=== PATIENT | female | born 1950 | race Caucasian/White ===

== ENCOUNTER → 2017-03-08 | Outpatient (CLI) | payer BC | END | disposition home or self-care (01) | LOC: C.PAPS 15:43 | PROVIDERS: ATTEND Physician Assistant | DX: Z01.411 Encounter for gynecological examination (general) (routine) with abnormal findings (principal) ==

== ENCOUNTER → 2017-03-09 | Outpatient (CLI) | payer BC ==
--- NOTE | 2017-03-09 16:00 | MAMMOGRAPHY REPORT ---
BILATERAL DIGITAL SCREENING MAMMOGRAM TOMOSYNTHESIS WITH CAD: 03/09/2017 CLINICAL HISTORY: Routine screening. Patient has no complaints. TECHNIQUE: Breast tomosynthesis in addition to standard 2D mammography was performed. Current study was also evaluated with a Computer Aided Detection (CAD) system. COMPARISON: Comparison is made to exams dated: 01/13/2016 mammogram, 01/18/2012 ultrasound, 01/18/20 12 mammogram, 01/13/2012 mammogram, 02/06/2010 mammogram - [facility], and 9. BREAST COMPOSITION: The tissue of both breasts is heterogeneously dense, which may obscure small mas ses. FINDINGS: No suspicious masses, calcifications, or areas of architectural distortion are noted in ei ther breast. There has been no significant interval change compared to prior exams. IMPRESSION: ACR BI-RADS CATEGORY 1: NEGATIVE There is no mammographic evidence of malignancy. A 1 year screening mammogram is recommended. The pa tient will receive written notification of the results. Approximately 10% of breast cancers are not detected with mammography. A negative mammographic report should not delay biopsy if a clinically suggestive mass is present. Angi Chew M.D. /:03/09/2017 14:59:01 [employer]visor [employer]: Irma Andrews [facility] letter sent: Normal 1/2 BI-RADS Code: ACR BI-RADS Category 1: Negative
== END | disposition home or self-care (01) ==
LOC: C.MAMM 14:06
PROVIDERS: ATTEND Obstetrics & Gynecology
DX: Z12.31 Encounter for screening mammogram for malignant neoplasm of breast (principal)

== ENCOUNTER 2020-10-18 04:38 | Inpatient (IN) ==
[2020-10-18] MEDS ORDERED: SODIUM CHLORIDE 0.9% 1000ML 1,000 ML IV STA (04:51)
[2020-10-18 05:12] LABS: Hemoglobin 14.6 g/dL (12.0-16.0); Mean Corpuscular Hemoglobin 30.4 pg (25-34); Mean Corpuscular Hgb Conc 33.2 g/dL (32-36); Mean Corpuscular Volume 91.7 fL (80-100); Mean Platelet Volume 9.7 fL (7.4-10.4); Platelet Count 342 K/uL (130-400); RDW Coefficient of Variation 13.8 % (11.5-14.5); RDW Standard Deviation 46.9 fL (36.4-46.3); White Blood Count 22.74 K/uL (4.8-10.8)
[2020-10-18 05:16] LABS: Appearance Urine Clear (Clear); Bacteria Urine Automated Negative (Negative); Bilirubin Urine Negative (Negative); Blood Urine Negative (Negative); Color Urine Dark Yellow; Epithelial Cell Urine Auto >30 /lpf (0-5); Glucose Urine UA Negative (Negative); Ketones Urine Trace (Negative); Leukocyte Esterase Urine Trace (Negative); Nitrite Urine Negative (Negative); Specific Gravity Urine 1.023 (1.000-1.030); Urobilinogen Urine Negative (Negative); pH Urine >= 9.0 (4.5-7.5)
[2020-10-18 05:19] LABS: Protein Urine 1+ (Negative)
[2020-10-18 05:31] LABS: Calcium 9.2 mg/dl (8.5-10.1); Creatinine Clr Calc Pharmacy 62.4 ml/min; Est GFR (African American) 76.1 ml/min; Est GFR (Non-African American) 65.7 ml/min; Potassium 3.8 mmol/L (3.5-5.1)
[2020-10-18 05:35] LABS: Albumin Globulin Ratio 1.1 (0.9-2); Globulin 3.7 gm/dl (2.5-4.0); Total Protein 7.7 gm/dl (6.4-8.2)
[2020-10-18 05:40] LABS: Basophils # (auto) 0.02 K/uL (0-0.2); Basophils % (auto) 0.1 %; Eosinophils # (auto) 0.02 K/uL (0-0.5); Eosinophils % (auto) 0.1 %; Immature Granulocytes # (auto) 0.09 K/uL (0.00-0.02); Immature Granulocytes % (auto) 0.4 %; Lymphocytes # (auto) 0.94 K/uL (1.2-3.4); Lymphocytes % (auto) 4.1 %; Monocytes # (auto) 1.21 K/uL (0.11-0.59); Monocytes % (auto) 5.3 %; Neutrophils # (auto) 20.46 K/uL (1.4-6.5)
[2020-10-18] MEDS ORDERED: OPTIRAY 320 100ml IV ONE (05:51)
[2020-10-18] MEDS ORDERED: PIPERACILLIN/TAZOBACTAM 4.5 GM/120 ML BAG IV ONE (06:01)
[2020-10-18] MEDS ORDERED: PIPERACILL/TAZOBAC CONSULT ACTIVE PRN (06:01)
--- NOTE | 2020-10-18 06:33 | XRay Report ---
XR chest 1V portable CLINICAL HISTORY: Abdominal pain. COMPARISON STUDY: Chest radiograph August 2020. FINDINGS: Lung volumes are normal. Lungs are clear. There is no pneumothorax or pleural effusion. Mil d cardiomegaly is noted. Mediastinal contours are normal. There is no evidence for pulmonary edema. IMPRESSION: No acute cardiopulmonary findings. No change in appearance of the chest. ACT 112: Negative or not required by law. Electronically signed by: George Hull M.D. 10/18/2020 6:31 AM
--- NOTE | 2020-10-18 07:02 | Surgery Consultation ---
Date of Consultation October 18, 2020 Assessment & Plan (1) Diverticulitis of intestine with abscess: Patient will be admitted to the hospital in the hospital service proceeding as follows: Recommend maintaining the patient on n.p.o. status except for ice chips for bowel rest Provide IV fluid for hydration Continue antibiotics in the form of Zosyn Follow serial labs Provide analgesics Provide antiemetics I discussed with the patient that the goal will be to treat this episode of diverticulitis in a conservative fashion as any emergent surgery would likely necessitate a colostomy. Once the patient shows clinical improvement with intravenous antibiotics this could be transition to oral antibiotics. Patient will likely require colonoscopy in the future once she is adequately recovered from this acute episode We will continue to follow along while the patient is hospitalized Dr. Ramsey-patient admitted with acute diverticulitis with a small pericolonic abscess. Patient now on IV antibiotics Continue bowel rest with ice only for 48 hours-normally I feel the patient should have 4 to 5 days of IV antibiotics She actually wants to go home tomorrow and I told her she should not-we will follow closely History of Present Illness Reason for Consultation: Diverticulitis with abscess History of Present Illness This is a 70-year-old female with a relatively unremarkable past medical history. The patient says she was in her usual state of health until last night she developed some left lower quadrant abdominal pain that did not radiate. She denies any fevers, shakes, chills. She did not have any nausea or vomiting. She notes that she has been having normal bowel movements without any bright red blood per rectum or hematochezia. She does report having had colonoscopies in the past and to the best of her knowledge has not had any significant pathology on these exams. She notes that her abdominal pain persisted and got progressively worse so she presented to the emergency department. She notes that she has never had had any abdominal surgeries. In the emergency department the patient did have labs and imaging which I dependently reviewed. CBC revealed white blood cell count was 22.7. Hemoglobin, hematocrit, platelet count were within normal range. Chemistry profile showed her sodium, potassium, BUN, creatinine were all within normal range. There is no elevation of her lipase. Urinalysis was not indicative of infection.Patient had a chest x-ray that did not show any evidence of pneumonia or CHF.Patient also had a CT scan of the abdomen and pelvis that showed findings consistent with sigmoid diverticulitis. There is also concern the patient had a 2.2 x 1.8 x 1.1 cm diverticular abscess. There is no evidence of pneumoper itoneum or high-grade bowel obstruction. Since admission to the emergency department the patient has been given antibiotics in the form of Zosyn. At the time of my interview her pain had improved and she was in no distress. Allergies Allergy/AdvReac Type Severity Reaction Status Date / Time prednisone AdvReac Intermediate NERVOUS Verified 08/22/20 16:25 AND SHAKEY FEELING-NOT SURE IF GOT HIVES Home Medications Medication Instructions Recorded Confirmed Type clobetasol 0.05 % topical ointment 1 applic TOPICAL QID #1 gm 12/12/18 08/22/20 History ascorbic acid (vitamin C) 250 mg 250 mg PO DAILY 06/24/19 08/22/20 History tablet (Vitamin C) calcium carbonate 600 mg (1,500 1 tab PO DAILY 06/24/19 08/22/20 History mg)-vitamin D3 200 unit tablet (Calcium 600 + D(3)) multivitamin 1 tab PO DAILY 06/24/19 08/22/20 History omega 3 350 mg-dha 235 mg-epa 90 1 cap PO DAILY 06/24/19 08/22/20 History mg-fish oil 597 mg capsule,delay rel ([place]-3) valacyclovir 500 mg tablet 500 mg PO BID #6 tab 08/22/20 08/22/20 Rx acetaminophen 300 mg-codeine 30 mg 1 tab PO Q6H PRN #14 tab 09/18/20 Rx tablet docusate sodium 100 mg capsule 100 mg PO BID #60 cap 09/18/20 Rx (Colace) lidocaine 4 % topical patch 1 patch TOPICAL DAILY #15 ea 09/18/20 Rx sennosides 8.6 mg tablet (Senokot) 8.6 mg PO HS #30 tab 09/18/20 Rx Patient History Medical History (Updated 10/18/20 @ 07:08 by Yumiko Gabriel MD) Abnormal finding on mammography Surgical History No pertinent past surgical history Family History Mother Uterine cancer Social History Smoking Status: Never smoker Feels Safe at Home: Yes Review of Systems Constitutional: no fever and no chills Eyes: no diplopia Ear, Nose, Mouth, Throat: no ear pain Respiratory: no cough and no dyspnea Cardiovascular: no chest pain Gastrointestinal: + abdominal pain; no nausea, no vomiting and no blood in stools Genitourinary: no dysuria Musculoskeletal: no back pain Integumentary: no rash Neurologic: no localized weakness Physical Exam Constitutional: WD/WN, vitals as above Eyes: no conjunctival abnormality ENMT: Ears: no hearing impairment Neck: trachea midline Respiratory: normal respiratory effort, lungs clear to auscultation Cardiovascular: RRR, no murmur, no edema Gastrointestinal (Abdomen): Abdomen is soft and nondistended with positive bowel sounds. There is no rebound tenderness or guarding. Patient did have pain with palpation greatest in the left lower quadrant. Musculoskeletal: No calf tenderness. Pedal pulses are palpable. Skin: no rashes, warm and dry Neurologic: moves all extremities Results & Data ([facility]) Vital Signs (Past 12 Hours) Vital Signs Temp Pulse Pulse Resp BP BP Pulse Ox 10/18/20 05:30 94 H 124/69 94 10/18/20 05:03 95 10/18/20 04:40 36.9 C 116 H 16 112/71 96 PG Care Time/CCT Total # of Minutes Spent Total Time Spent with Patient: Total time spent is greater than 50% in coordination of care (as documented) at patient's floor/unit and/or counseling patient: Coding Level of Care Code 60110 Inpt Consult Level 5 Diagnoses Diverticulitis of intestine with abscess K57.80
--- NOTE | 2020-10-18 07:12 | History & Physical Report ---
Date of Service October 18, 2020 Assessment & Plan (1) Diverticulitis of intestine with abscess: Plan: Zosyn NPO LR @ 125 ml/hr Plan: Lovenox for VTE prophylaxis History of Present Illness Chief Complaint: Abdominal pain Primary Care Provider: Ashli Cedeño Sushma Martinez is a 70 year old female who presents to the ER with abdominal pain. Relatively sudden onset left lower quadrant and now central abdominal pain, occurred since last night, aching, no radiation, much improved since bowel rest and pain medications given. Associated fatigue going on for longer which she put down to recent rib fractures. She has never had diverticultitis before had previously normal colonoscopies but unsure when the last one was. She notes she was supposed to have a colonoscopy last summer but this was delayed due to the pandemic. In the ER WBC elevated at 22.74, CT A/P consistent with sigmoid diverticulitis with associated 2.2x1.8x1.1cm abscess. She was started on Zosyn for antibiotic coverage. Allergies Allergy/AdvReac Type Severity Reaction Status Date / Time prednisone AdvReac Intermediate NERVOUS Verified 08/22/20 16:25 AND SHAKEY FEELING-NOT SURE IF GOT HIVES Home Medications Medication Instructions Recorded Confirmed Type clobetasol 0.05 % topical ointment 1 applic TOPICAL QID #1 gm 12/12/18 10/18/20 History ascorbic acid (vitamin C) 250 mg 250 mg PO DAILY 06/24/19 10/18/20 History tablet (Vitamin C) calcium carbonate 600 mg (1,500 1 tab PO DAILY 06/24/19 10/18/20 History mg)-vitamin D3 200 unit tablet (Calcium 600 + D(3)) multivitamin 1 tab PO DAILY 06/24/19 10/18/20 History omega 3 350 mg-dha 235 mg-epa 90 1 cap PO DAILY 06/24/19 10/18/20 History mg-fish oil 597 mg capsule,delay rel ([place]-3) valacyclovir 500 mg tablet 500 mg PO BID #6 tab 08/22/20 08/22/20 Rx docusate sodium 100 mg capsule 100 mg PO BID #60 cap 09/18/20 10/18/20 Rx (Colace) lidocaine 4 % topical patch 1 patch TOPICAL DAILY #15 ea 09/18/20 10/18/20 Rx sennosides 8.6 mg tablet (Senokot) 8.6 mg PO HS #30 tab 09/18/20 Rx Past Med/Surg History Medical History (Updated 10/18/20 @ 07:08 by Yumiko Gabriel MD) Abnormal finding on mammography Surgical History No pertinent past surgical history Family History Mother Uterine cancer Social History Smoking Status: Never smoker Hx Alcohol Use: Yes Alcohol type: wine Hx Substance Use: No Preferred Language: Telugu [employer] Required: No Beliefs That Will Affect Care: None Current Living Situation: Spouse Feels Safe at Home: Yes Assistive Devices: None Review of Systems Review of Systems: All systems reviewed & are unremarkable except as noted in HPI & below Physical Exam Constitutional: WD/WN, vitals as above Eyes: + anicteric sclerae; normal pupil size ENMT: external ear and nose normal, oropharynx normal Mouth: oral mucous membranes not dry Neck: trachea midline, no thyromegaly Respiratory: normal respiratory effort, lungs clear to auscultation Cardiovascular: RRR, no murmur, no edema Gastrointestinal (Abdomen): Inspection/Auscultation: normal bowel sounds; abdomen not distended Percussion/Palpation: + abdomen tender (mild central tenderness) and abdomen soft; no guarding, abdomen not rigid and no hepatosplenomegaly Musculoskeletal: no cyanosis or clubbing, extremities motor strength 5/5 Skin: no rashes, warm and dry Neurologic: moves all extremities and awake; not confused Psychiatric: A+Ox3, euthymic affect Results & Data Results & Data ([facility]) Vital Signs (Past 12 Hours) Vital Signs Temp Pulse Pulse Resp BP BP Pulse Ox 10/18/20 07:05 98 H 16 131/81 98 10/18/20 05:30 94 H 124/69 94 10/18/20 05:03 95 10/18/20 04:40 36.9 C 116 H 16 112/[address] OF THE ABDOMEN AND PELVIS WITH CONTRAST CLINICAL HISTORY: Abdominal pain. Evaluate for acute diverticulitis. COMPARISON STUDY: Right upper quadrant ultrasound June 24, 2019. Pelvic ultrasound March 12, 2020. TECHNIQUE: Following IV administration of 93 mL of Optiray, axial images of the abdomen and pelvis were obtained from the lung bases to the proximal femurs. Images were reviewed in the axial, sagittal, and coronal planes. IV contrast was administered without complication. Automated exposure control was utilized for the study. A dose lowering technique was utilized adhering to the principles of ALARA. CT DOSE: 657.20 mGycm FINDINGS: Lung bases are unremarkable. There is cardiomegaly. A small hiatal hernia is present. The liver, spleen, adrenal glands, kidneys and pancreas are unremarkable. There is excreted contrast within the collecting systems which decreases sensitivity for detection of renal calculi. The appendix is normal. Is no evidence for a bowel obstruction. Note is made of sigmoid diverticulosis. There is wall thickening of the proximal sigmoid colon with moderate adjacent inflammation. There is a small amount of fluid. There is a tiny 1.9 x 1.1 cm rim-enhancing fluid collection along the inferolateral aspect of the sigmoid colon suggestive of a developing abscess. 3.2 x 1.9 cm gas and fluid containing density along the left pelvic sidewall on image 325 likely reflects the left ovary which is involved in the inflammatory process. No additional abscesses are identified. IMPRESSION: 1. Findings consistent with acute sigmoid diverticulitis with moderate left pelvic inflammation. Small adjacent 1.9 x 1.1 cm rim-enhancing fluid collection suggests a peridiverticular abscess. 3.2 x 1.9 cm gas and fluid containing density along the left pelvic sidewall likely reflects the left ovary. This suggests involvement of the left adnexa with diverticulitis. Extraluminal gas represents a contained perforation. Findings discussed with Dr. Gabriel at time of dictation. 2. No bowel obstruction. ECG Indication: abdominal pain Rate (beats per minute): 103 Rhythm: sinus tachycardia Findings: + PVC and + T-wave inversion (Lateral) Comparison ECG Date: from (September 18, 2020) Change: the following changes noted (lateral TWI are new) Code Status & VTE Plan Code Status Full VTE Prophylaxis Plan VTE Prophylaxis will be ordered: Yes PG Care Time/CCT Total # of Minutes Spent Total Time Spent with Patient: Total time spent is greater than 50% in coordination of care (as documented) at patient's floor/unit and/or counseling patient: Coding Level of Care Code 92639 Initial Inpt Care Lvl 3 Diagnoses Diverticulitis of intestine with abscess K57.20 Diverticulitis bleeding: without bleeding Diverticulitis site: large intestine (1) Diverticulitis of intestine with abscess Diverticulitis bleeding: without bleeding Diverticulitis site: large intestine Qualified Code(s): K57.20 - Diverticulitis of large intestine with perforation and abscess without bleeding
--- NOTE | 2020-10-18 07:15 | CT Scan Report ---
CT OF THE ABDOMEN AND PELVIS WITH CONTRAST CLINICAL HISTORY: Abdominal pain. Evaluate for acute diverticulitis. COMPARISON STUDY: Right upper quadrant ultrasound June 24, 2019. Pelvic ultrasound March 12, 2020 . TECHNIQUE: Following IV administration of 93 mL of Optiray, axial images of the abdomen and pelvis we re obtained from the lung bases to the proximal femurs. Images were reviewed in the axial, sagittal, and coronal planes. IV contrast was administered without complication. Automated exposure control wa s utilized for the study. A dose lowering technique was utilized adhering to the principles of ALARA . CT DOSE: 657.20 mGycm FINDINGS: Lung bases are unremarkable. There is cardiomegaly. A small hiatal hernia is present. The l iver, spleen, adrenal glands, kidneys and pancreas are unremarkable. There is excreted contrast withi n the collecting systems which decreases sensitivity for detection of renal calculi. The appendix is normal. Is no evidence for a bowel obstruction. Note is made of sigmoid diverticulosis. There is wall thickening of the proximal sigmoid colon with moderate adjacent inflammation. There is a small amoun t of fluid. There is a tiny 1.9 x 1.1 cm rim-enhancing fluid collection along the inferolateral aspec t of the sigmoid colon suggestive of a developing abscess. 3.2 x 1.9 cm gas and fluid containing dens ity along the left pelvic sidewall on image 325 likely reflects the left ovary which is involved in t he inflammatory process. No additional abscesses are identified. IMPRESSION: 1. Findings consistent with acute sigmoid diverticulitis with moderate left pelvic inflammation. Smal l adjacent 1.9 x 1.1 cm rim-enhancing fluid collection suggests a peridiverticular abscess. 3.2 x 1.9 cm gas and fluid containing density along the left pelvic sidewall likely reflects the left ovary. T his suggests involvement of the left adnexa with diverticulitis. Extraluminal gas represents a contai jennifer perforation. Findings discussed with Dr. Gabriel at time of dictation. 2. No bowel obstruction. ACT 112: Negative or not required by law. Electronically signed by: George Hull M.D. 10/18/2020 7:13 AM
[2020-10-18] MEDS ORDERED: ACETAMINOPHEN 1,000 MG/100 ML VIAL IV PRN (07:59)
[2020-10-18] MEDS ORDERED: HYDROmorphone INJ 0.5 MG/0.5 ML SYR IV PRN (07:59)
[2020-10-18] MEDS ORDERED: LACTATED RINGER'S 1,000 ML IV SCH (08:00)
[2020-10-18] MEDS: HYDROmorphone INJ 0.5 MG/0.5 ML SYR IV PRN (09:48)
--- NOTE | 2020-10-18 09:58 | Electrocardiogram Report ---
Test Reason : Blood Pressure : / mmHG Vent. Rate : 103 BPM Atrial Rate : 103 BPM P-R Int : 132 ms QRS Dur : 090 ms QT Int : 348 ms P-R-T Axes : 021 004 157 degrees QTc Int : 455 ms Sinus tachycardia with Premature ventricular complexes Inferior infarct , age undetermined Abnormal ECG When compared with ECG of 18-SEP-2020 14:11, Premature ventricular complexes are now Present Vent. rate has increased BY 39 BPM Inverted T waves have replaced nonspecific T wave abnormality in Lateral leads Confirmed by Leroy Jackson ([id number]) on 10/18/2020 9:57:41 AM Referred By: REFERRED SELF Confirmed By:Leroy Jackson
[2020-10-18] MEDS: LACTATED RINGER'S 1,000 ML IV SCH ×2 (10:25→23:21)
[2020-10-18] MEDS: PIPERACILLIN/TAZOBACTAM 3.375 GM in DEXTROSE 5% 100 ML IV SCH ×2 (12:12→19:12)
[2020-10-18] MEDS: ENOXAPARIN INJ 40 MG/0.4 ML SYR SQ SCH (21:48)
--- NOTE | 2020-10-18 23:15 | Emergency Department Note ---
History of Present Illness General Chief complaint: Abdominal Pain Stated complaint: abd pain,rib pain,chest pain Source: patient, EMS and RN notes reviewed Mode of arrival: ambulatory Limitations: no limitations History of Present Illness Provider complaint: Lower abdominal cramping Maximum Pain Intensity: 2 This patient is a 70-year-old female who presents emergency department with complaints of abdominal pain, cramping after eating a tuna sandwich. She states this began this afternoon. She denies any fever, urinary difficulties, blood in the stools, vomiting or diarrhea. She denies any fevers. She denies any symptoms like this in the past. Home Medications Medication Instructions Recorded Confirmed Type clobetasol 0.05 % topical ointment 1 applic TOPICAL QID #1 gm 12/12/18 10/18/20 History ascorbic acid (vitamin C) 250 mg 250 mg PO DAILY 06/24/19 10/18/20 History tablet (Vitamin C) calcium carbonate 600 mg (1,500 1 tab PO DAILY 06/24/19 10/18/20 History mg)-vitamin D3 200 unit tablet (Calcium 600 + D(3)) multivitamin 1 tab PO DAILY 06/24/19 10/18/20 History omega 3 350 mg-dha 235 mg-epa 90 1 cap PO DAILY 06/24/19 10/18/20 History mg-fish oil 597 mg capsule,delay rel (Dowell-3) valacyclovir 500 mg tablet 500 mg PO BID #6 tab 08/22/20 08/22/20 Rx docusate sodium 100 mg capsule 100 mg PO BID #60 cap 09/18/20 10/18/20 Rx (Colace) lidocaine 4 % topical patch 1 patch TOPICAL DAILY #15 ea 09/18/20 10/18/20 Rx sennosides 8.6 mg tablet (Senokot) 8.6 mg PO HS #30 tab 09/18/20 Rx ondansetron 4 mg disintegrating 4 mg PO Q8H PRN #10 tab 10/23/20 Rx tablet piperacillin-tazobactam 4.5 4.5 g IV Q8H 28 Days #9450 ml 10/23/20 Rx gram/100 mL dextrose(iso-osm) IV piggyback (Zosyn) Allergies Allergy/AdvReac Type Severity Reaction Status Date / Time prednisone AdvReac Intermediate NERVOUS Verified 08/22/20 16:25 AND SHAKEY FEELING-NOT SURE IF GOT HIVES Past Med/Surg History Medical History Abnormal finding on mammography Depression Lichen sclerosus et atrophicus Surgical History No pertinent past surgical history Family History Mother Uterine cancer Social History Smoking Status: Never smoker Hx Alcohol Use: Yes Alcohol type: wine Hx Substance Use: No Preferred Language: Hungarian Communication Ability: Effective Barrel Bung Remover And Dumper Required: No Beliefs That Will Affect Care: None marital status: Single Current Living Situation: Spouse Feels Safe at Home: Yes Assistive Devices: None Review of Systems See HPI for pertinent positives & negatives. and A total of 10 systems reviewed and were otherwise negative Physical Exam Vital Signs Vital Signs - 24 hr 10/18/20 04:40 10/18/20 05:03 10/18/20 05:30 Temperature 36.9 C Temperature Source Temporal Artery Scan Pulse Rate 116 H Pulse Rate [Finger] 94 H Respiratory Rate 16 Respiratory Effort / Characteristics Non-Labored Spontaneous Respiratory Depth Normal Respiratory Pattern Agonal Blood Pressure 112/71 Blood Pressure [Left Arm] 124/69 Blood Pressure Mean 84 Blood Pressure Mean [Left Arm] 87 Blood Pressure Position Sitting Pulse Oximetry 96 95 94 Oxygen Delivery Method Room Air Room Air Room Air Sepsis Recent Fever Within 48 Hours No Sepsis New/Unexplained Change in Mental Status N/A Sepsis Action Taken by Nursing No Action Required 10/18/20 07:05 Temperature Temperature Source Pulse Rate Pulse Rate [Finger] 98 H Respiratory Rate 16 Respiratory Effort / Characteristics Non-Labored Respiratory Depth Normal Respiratory Pattern Blood Pressure Blood Pressure [Left Arm] 131/81 Blood Pressure Mean Blood Pressure Mean [Left Arm] 97 Blood Pressure Position Pulse Oximetry 98 Oxygen Delivery Method Room Air Sepsis Recent Fever Within 48 Hours Sepsis New/Unexplained Change in Mental Status Sepsis Action Taken by Nursing Vital signs reviewed. General: Well-appearing 70 yo female, in no significant distress. HEENT: No scleral icterus, PERRLA, neck supple. Atraumatic. Cardiovascular: Regular rate and rhythm, no extra sounds. Pulmonary: Clear to auscultation bilaterally, normal work of breathing. Abdomen: Soft, tender to palp lower suprapubic area, no rebound, minimally distended, positive bowel sounds. Musculoskeletal: Atraumatic, no peripheral edema. Neurologic: Patient awake alert and oriented x 3 Skin: Warm, dry, no rash Course Administered Medications Enoxaparin Sodium (Enoxaparin Inj 40 Mg/0.4 Ml Syr) 40 mg SQ QPM [facility] Stop: 11/17/20 20:59 Last Admin: 10/22/20 20:28 Dose: Not Given Documented by: [id number] Admin: 10/21/20 21:55 Dose: Not Given Documented by: [id number] Admin: 10/20/20 22:23 Dose: Not Given Documented by: [id number] Admin: 10/19/20 22:20 Dose: Not Given Documented by: [id number] Admin: 10/18/20 21:48 Dose: 40 mg Documented by: [id number] Hydromorphone HCl (Hydromorphone Inj 0.5 Mg/0.5 Ml Syr) 0.5 mg IV Q4H PRN PRN Reason: Pain or fever Stop: 11/01/20 08:02 Last Admin: 10/21/20 05:46 Dose: 0.5 mg Documented by: [id number] Admin: 10/19/20 15:19 Dose: 0.5 mg Documented by: [id number] Admin: 10/18/20 09:48 Dose: 0.5 mg Documented by: [id number] Piperacillin Sod/Tazobactam (Sod 4.5 gm/ Dextrose) 120 mls @ 30 mls/hr IV Q8H [facility]; Protocol Stop: 11/02/20 15:59 Last Admin: 10/23/20 15:32 Dose: 30 mls/hr Documented by: [id number] Lidocaine (Lidocaine 5% 1 Patch) 1 patch TD QAM [facility] Stop: 11/21/20 08:59 Last Admin: 10/23/20 10:22 Dose: Not Given Documented by: [id number] Admin: 10/22/20 10:33 Dose: Not Given Documented by: [id number] Miscellaneous (Remove Lidoderm Patch) 1 ea N/A DAILY@2100 [facility] Stop: 11/20/20 20:59 Last Admin: 10/22/20 20:29 Dose: Not Given Documented by: [id number] Admin: 10/21/20 21:55 Dose: Not Given Documented by: [id number] Ondansetron HCl (Ondansetron Inj 2 Mg/Ml 2 Ml Vial) 4 mg IV Q4H PRN PRN Reason: Nausea Stop: 11/17/20 17:36 Last Admin: 10/21/20 14:41 Dose: 4 mg Documented by: [id number] Admin: 10/19/20 15:25 Dose: 4 mg Documented by: [id number] Zolpidem Tartrate (Zolpidem Tartrate 5 Mg Tab) 5 mg PO HS PRN PRN Reason: Sleep Stop: 11/18/20 09:53 Last Admin: 10/22/20 23:29 Dose: 5 mg Documented by: [id number] Admin: 10/21/20 22:57 Dose: 5 mg Documented by: [id number] Admin: 10/20/20 22:29 Dose: 5 mg Documented by: [id number] Discontinued Medications Amoxicillin/Clavulanate Potassium (Amoxicillin/Clavulanate 875 Mg Tab) 1 tab PO BIDM [facility] Stop: 10/31/20 07:59 Last Admin: 10/22/20 10:40 Dose: Not Given Documented by: [id number] Admin: 10/21/20 17:47 Dose: 1 tab Documented by: [id number] Admin: 10/21/20 09:37 Dose: 1 tab Documented by: [id number] Sodium Chloride (Nss 1000ml) 1,000 mls @ 125 mls/hr IV .Q8H [facility] Stop: 10/18/20 12:50 Last Infusion: 10/18/20 09:22 Dose: 0 mls/hr Documented by: [id number] Admin: 10/18/20 06:01 Dose: 125 mls/hr Documented by: [id number] Piperacillin Sod/Tazobactam Sod (Zosyn) 4.5 gm in 120 mls @ 240 mls/hr IV NOW ONE Stop: 10/18/20 06:30 Last Infusion: 10/18/20 06:49 Dose: 0 mls/hr Documented by: [id number] Admin: 10/18/20 06:09 Dose: 240 mls/hr Documented by: [id number] Lactated Ringer's (Lr) 1,000 mls @ 125 mls/hr IV .Q8H [facility] Stop: 11/17/20 07:59 Last Admin: 10/18/20 10:26 Dose: Not Given Documented by: [id number] Lactated Ringer's (Lr) 1,000 mls @ 125 mls/hr IV .Q8H [facility] Stop: 11/17/20 09:38 Last Infusion: 10/21/20 18:27 Dose: 125 mls/hr Documented by: [id number] Infusion: 10/21/20 06:24 Dose: 125 mls/hr Documented by: [id number] Admin: 10/21/20 05:45 Dose: 125 mls/hr Documented by: [id number] Infusion: 10/21/20 05:45 Dose: 125 mls/hr Documented by: [id number] Admin: 10/20/20 22:21 Dose: 125 mls/hr Documented by: [id number] Infusion: 10/20/20 21:59 Dose: 125 mls/hr Documented by: [id number] Admin: 10/20/20 13:59 Dose: 125 mls/hr Documented by: [id number] Infusion: 10/20/20 13:57 Dose: 125 mls/hr Documented by: [id number] Admin: 10/20/20 05:57 Dose: 125 mls/hr Documented by: [id number] Infusion: 10/20/20 05:57 Dose: 125 mls/hr Documented by: [id number] Admin: 10/19/20 22:20 Dose: 125 mls/hr Documented by: [id number] Infusion: 10/19/20 22:20 Dose: 125 mls/hr Documented by: [id number] Admin: 10/19/20 15:19 Dose: 125 mls/hr Documented by: [id number] Infusion: 10/19/20 15:19 Dose: 125 mls/hr Documented by: [id number] Admin: 10/19/20 07:34 Dose: 125 mls/hr Documented by: [id number] Infusion: 10/19/20 07:34 Dose: 125 mls/hr Documented by: [id number] Infusion: 10/19/20 05:40 Dose: 125 mls/hr Documented by: [id number] Infusion: 10/19/20 05:26 Dose: 0 mls/hr Documented by: [id number] Admin: 10/19/20 03:27 Dose: Not Given Documented by: [id number] Admin: 10/18/20 23:21 Dose: 125 mls/hr Documented by: [id number] Infusion: 10/18/20 18:25 Dose: 125 mls/hr Documented by: [id number] Admin: 10/18/20 10:25 Dose: 125 mls/hr Documented by: [id number] Acetaminophen (Ofirmev) 1,000 mg in 100 mls @ 400 mls/hr IV Q8H PRN PRN Reason: Pain or Fever Stop: 10/21/20 09:38 Last Infusion: 10/20/20 16:03 Dose: 0 mls/hr Documented by: [id number] Admin: 10/20/20 14:00 Dose: 400 mls/hr Documented by: [id number] Infusion: 10/20/20 02:16 Dose: 0 mls/hr Documented by: [id number] Admin: 10/20/20 01:56 Dose: 400 mls/hr Documented by: [id number] Infusion: 10/19/20 05:40 Dose: 0 mls/hr Documented by: [id number] Admin: 10/19/20 05:25 Dose: 400 mls/hr Documented by: [id number] Piperacillin Sod/Tazobactam (Sod 3.375 gm/ Dextrose) 115 mls @ 28.75 mls/hr IV Q8H [facility]; Protocol Stop: 10/21/20 00:01 Last Infusion: 10/20/20 22:45 Dose: 0 mls/hr Documented by: [id number] Admin: 10/20/20 18:45 Dose: 28.8 mls/hr Documented by: [id number] Infusion: 10/20/20 16:03 Dose: 0 mls/hr Documented by: [id number] Admin: 10/20/20 11:14 Dose: 28.8 mls/hr Documented by: [id number] Infusion: 10/20/20 05:57 Dose: 0 mls/hr Documented by: [id number] Admin: 10/20/20 01:51 Dose: 28.8 mls/hr Documented by: [id number] Infusion: 10/19/20 23:03 Dose: 0 mls/hr Documented by: [id number] Admin: 10/19/20 19:03 Dose: 28.8 mls/hr Documented by: [id number] Infusion: 10/19/20 16:47 Dose: 0 mls/hr Documented by: [id number] Admin: 10/19/20 12:16 Dose: 28.8 mls/hr Documented by: [id number] Infusion: 10/19/20 07:34 Dose: 0 mls/hr Documented by: [id number] Admin: 10/19/20 03:42 Dose: 28.8 mls/hr Documented by: [id number] Infusion: 10/18/20 23:21 Dose: 0 mls/hr Documented by: [id number] Admin: 10/18/20 19:12 Dose: 28.8 mls/hr Documented by: [id number] Infusion: 10/18/20 16:14 Dose: 0 mls/hr Documented by: [id number] Admin: 10/18/20 12:12 Dose: 28.8 mls/hr Documented by: [id number] Furosemide 20 mg/ Syringe 2 mls @ 4 mls/min IV ONE ONE Stop: 10/22/20 09:11 Last Admin: 10/22/20 10:28 Dose: 4 mls/min Documented by: [id number] Piperacillin Sod/Tazobactam Sod (Zosyn) 3.375 gm in 115 mls @ 230 mls/hr IV NOW ONE Stop: 10/22/20 10:59 Last Infusion: 10/22/20 12:15 Dose: 0 mls/hr Documented by: [id number] Admin: 10/22/20 11:07 Dose: 230 mls/hr Documented by: [id number] Piperacillin Sod/Tazobactam (Sod 3.375 gm/ Dextrose) 115 mls @ 28.75 mls/hr IV Q8H [facility]; Protocol Stop: 11/01/20 15:59 Last Infusion: 10/23/20 12:03 Dose: 0 mls/hr Documented by: [id number] Admin: 10/23/20 07:59 Dose: 28.8 mls/hr Documented by: [id number] Infusion: 10/23/20 03:35 Dose: 0 mls/hr Documented by: [id number] Admin: 10/22/20 23:23 Dose: 28.8 mls/hr Documented by: [id number] Infusion: 10/22/20 20:23 Dose: 0 mls/hr Documented by: [id number] Admin: 10/22/20 16:23 Dose: 28.8 mls/hr Documented by: [id number] Ioversol (Optiray 320 100ml) 93 ml IV ONCE ONE Stop: 10/18/20 05:52 Last Admin: 10/18/20 05:52 Dose: 93 ml Documented by: [id number] Ioversol (Optiray 320 125ml) 120 ml IV ONCE ONE Stop: 10/22/20 08:59 Last Admin: 10/22/20 08:59 Dose: 120 ml Documented by: [id number] Lorazepam (Lorazepam 0.5 Mg Tab) 0.5 mg PO NOW STA Stop: 10/23/20 12:13 Last Admin: 10/23/20 14:02 Dose: Not Given Documented by: [id number] Potassium Chloride (Potassium Chloride Crtab 20 Meq Tabcr) 40 meq PO NOW STA Stop: 10/21/20 16:24 Last Admin: 10/21/20 17:47 Dose: 40 meq Documented by: [id number] Potassium Chloride (Potassium Chloride Crtab 20 Meq Tabcr) 40 meq PO NOW STA Stop: 10/22/20 09:11 Last Admin: 10/22/20 10:29 Dose: 40 meq Documented by: [id number] Medical Decision Making Differential Diagnosis Appendicitis, diverticulitis, UTI, obstruction, mesenteric ischemia, aortic pathology, inflammatory bowel disease, renal colic, PUD, pancreatitis, biliary pathology, hernia, volvulus, constipation, as well as other pathologies. Medical Records Attestation: I reviewed the patient's medical records. Home Medications Current Medication List: was personally reviewed by me Laboratory Data Attestation: I reviewed the patient's lab results. Result diagrams: 10/23/20 05:57 10/23/20 07:24 Lab Results 10/18/20 10/18/20 10/18/20 Range/Units 04:58 04:58 05:03 WBC 22.74 H (4.8-10.8) K/uL RBC 4.80 (4.2-5.4) M/uL Hgb 14.6 (12.0-16.0) g/dL Hct 44.0 (37-47) % MCV 91.7 (80-100) fL MCH 30.4 (25-34) pg MCHC 33.2 (32-36) g/dL RDW Std Deviation 46.9 H (36.4-46.3) fL RDW Coeff of Tito 13.8 (11.5-14.5) % Plt Count 342 (130-400) K/uL MPV 9.7 (7.4-10.4) fL Immature Gran % (Auto) 0.4 % Neut % (Auto) 90.0 % Lymph % (Auto) 4.1 % [place] % (Auto) 5.3 % Eos % (Auto) 0.1 % Baso % (Auto) 0.1 % Neut # (Auto) 20.46 H (1.4-6.5) K/uL Lymph # (Auto) 0.94 L (1.2-3.4) K/uL [place] # (Auto) 1.21 H (0.11-0.59) K/uL Eos # (Auto) 0.02 (0-0.5) K/uL Baso # (Auto) 0.02 (0-0.2) K/uL Immature Gran # (Auto) 0.09 H (0.00-0.02) K/uL Sodium 138 (136-145) mmol/L Potassium 3.8 (3.5-5.1) mmol/L Chloride 108 H (98-107) mmol/L Carbon Dioxide 26 (21-32) mmol/L Anion Gap 4.0 (3-11) BUN 12 (7-18) mg/dl Creatinine 0.90 (0.6-1.2) mg/dl Est Cr Clr Drug Dosing 62.4 ml/min Est GFR ( Amer) 76.1 ml/min Est GFR (Non-Af Amer) 65.7 ml/min BUN/Creatinine Ratio 13.0 (10-20) Glucose 134 H (70-99) mg/dl Calcium 9.2 (8.5-10.1) mg/dl Total Bilirubin 1.0 (0.2-1) mg/dl AST 11 L (15-37) U/L ALT 22 (12-78) U/L Alkaline Phosphatase 96 (45-117) U/L Total Protein 7.7 (6.4-8.2) gm/dl Albumin 4.0 (3.4-5.0) gm/dl Globulin 3.7 (2.5-4.0) gm/dl Albumin/Globulin Ratio 1.1 (0.9-2) Lipase 69 L (73-393) U/L Urine Color Dark Yellow Urine Appearance Clear (Clear) Urine pH >= 9.0 H (4.5-7.5) Ur Specific [place] 1.023 (1.000-1.030) Urine Protein 1+ H (Negative) Urine Glucose (UA) Negative (Negative) Urine Ketones Trace H (Negative) Urine Blood Negative (Negative) Urine Nitrite Negative (Negative) Urine Bilirubin Negative (Negative) Urine Urobilinogen Negative (Negative) Ur Leukocyte Esterase Trace H (Negative) Urine WBC (Auto) 1-5 (0-5) /hpf Urine RBC (Auto) 5-10 H (0-4) /hpf U Hyaline Cast (Auto) 1-5 (0-5) /lpf U Epithel Cells (Auto) >30 H (0-5) /lpf Urine Bacteria (Auto) Negative (Negative) Ur Renal Epithelial Cell Not Reportable Imaging Data Radiologist's Impression: Chest X-Ray 10/18/20 04:52 XR chest 1V portable CLINICAL HISTORY: Abdominal pain. COMPARISON STUDY: Chest radiograph August 2020. FINDINGS: Lung volumes are normal. Lungs are clear. There is no pneumothorax or pleural effusion. Mild cardiomegaly is noted. Mediastinal contours are normal. There is no evidence for pulmonary edema. IMPRESSION: No acute cardiopulmonary findings. No change in appearance of the chest. ACT 112: Negative or not required by law. Electronically signed by: George Hull M.D. 10/18/2020 6:31 AM Abdomen/Pelvis CT 10/18/20 05:01 CT OF THE ABDOMEN AND PELVIS WITH CONTRAST CLINICAL HISTORY: Abdominal pain. Evaluate for acute diverticulitis. COMPARISON STUDY: Right upper quadrant ultrasound June 24, 2019. Pelvic ultras ound March 12, 2020. TECHNIQUE: Following IV administration of 93 mL of Optiray, axial images of the abdomen and pelvis were obtained from the lung bases to the proximal femurs. Images were reviewed in the axial, sagittal, and coronal planes. IV contrast was administered without complication. Automated exposure control was utilized for the study. A dose lowering technique was utilized adhering to the principles of ALARA. CT DOSE: 657.20 mGycm FINDINGS: Lung bases are unremarkable. There is cardiomegaly. A small hiatal hernia is present. The liver, spleen, adrenal glands, kidneys and pancreas are unremarkable. There is excreted contrast within the collecting systems which decreases sensitivity for detection of renal calculi. The appendix is normal. Is no evidence for a bowel obstruction. Note is made of sigmoid diverticulosis. There is wall thickening of the proximal sigmoid colon with moderate adjacent inflammation. There is a small amount of fluid. There is a tiny 1.9 x 1.1 cm rim-enhancing fluid collection along the inferolateral aspect of the sigmoid colon suggestive of a developing abscess. 3.2 x 1.9 cm gas and fluid containing density along the left pelvic sidewall on image 325 likely reflects the left ovary which is involved in the inflammatory process. No additional abscesses are identified. IMPRESSION: 1. Findings consistent with acute sigmoid diverticulitis with moderate left pelvic inflammation. Small adjacent 1.9 x 1.1 cm rim-enhancing fluid collection suggests a peridiverticular abscess. 3.2 x 1.9 cm gas and fluid containing density along the left pelvic sidewall likely reflects the left ovary. This suggests involvement of the left adnexa with diverticulitis. Extraluminal gas represents a contained perforation. Findings discussed with Dr. Gabriel at time of dictation. 2. No bowel obstruction. ACT 112: Negative or not required by law. Electronically signed by: George Hull M.D. 10/18/2020 7:13 AM ECG Data Attestation: I personally reviewed and interpreted this ECG as follows: Indication: + abdominal pain Rate (beats per minute): 49 Rhythm: + sinus bradycardia ECG Intervals/blocks: + Normal QT-c ECG Astor: + Normal ECG ST segments: + Normal ST segments and + repolarization abnormalities (nonspecific T wave abnl anteroseptal) ECG Findings: no PACs or no PVCs Blood Pressure Blood Pressure Findings: Elevated blood pressure Blood Pressure Disposition: further management by hospitalist RUDDY Albarran This patient was evaluated and appeared to be in some discomfort. IV access was obtained and laboratory work was drawn. An order for cardiac monitoring was placed and the patient is noted to be in a sinus rhythm at 94 bpm. Patient was hydrated with normal saline solution. Laboratory work reveals a WBC of 22. CT scan of the abdomen pelvis reveals an acute sigmoid diverticulitis with a small contained 2 cm abscess. Patient was medicated with 4.5 g of IV Zosyn. Case was discussed with general surgery, Odell Holt PA-C, who agrees that the abscess is too small to be amenable to interventional radiology procedures. Patient was discussed with the hospitalist, Dr. Ch who will evaluate the patient for admission and further management. Patient was made aware of the findings and plan and agreed. Impression & Plan Diverticulitis of intestine with abscess Discharge Plan Visit Data Chief Complaint: Abdominal Pain Stated Complaint: abd pain,rib pain,chest pain ED Provider: Yumiko Gabriel Discharge Problem: Diverticulitis of intestine with abscess Patient Disposition: Admitted As Inpatient Discharge Instructions Interventions: ED Discharge Assessment Last Done: 10/18/20 09:20 Discharge Problem: Diverticulitis of intestine with abscess Qualifiers: Diverticulitis site: large intestine Diverticulitis bleeding: without bleeding Qualified Code(s): K57.20 - Diverticulitis of large intestine with perforation and abscess without bleeding
[2020-10-19] MEDS: LACTATED RINGER'S 1,000 ML IV SCH ×4 (03:27→22:20)
[2020-10-19] MEDS: PIPERACILLIN/TAZOBACTAM 3.375 GM in DEXTROSE 5% 100 ML IV SCH ×3 (03:42→19:03)
[2020-10-19] MEDS: ACETAMINOPHEN 1,000 MG/100 ML VIAL IV PRN (05:25)
--- NOTE | 2020-10-19 05:46 | Surgery Progress Note ---
Date of Service October 19, 2020 Assessment & Plan (1) Diverticulitis of intestine with abscess: Plan: Patient has been admitted to the hospital in the hospital service proceeding as follows: Continue n.p.o. status for at least another 24 hours with nothing but ice chi ps. Consideration will be given to advancing diet over the next 24 hours if clinical improvement continues Continue IV fluid for hydration Continue antibiotics in the form of Zosyn. As noted by Dr. Ramsey patient will require 4 to 5 days of intravenous antibiotics, we will ultimately plan on transitioning patient to oral antibiotics once further clinical improvement continues Continue to follow serial labs Continue analgesics Continue antiemetics Patient will likely require colonoscopy in the future once she is adequately recovered from this acute episode Dr. Ramsey-patient doing much better than on admission Vital signs are stable Continue n.p.o. except ice today and clear liquids tomorrow if she remains stable Continue IV antibiotics Encourage ambulation Admission and Anticipated Discharge Date Admission Date: October 18, 2020 Subjective Patient is resting in bed. She notes that her pain is well controlled with occasional twinges of left lower quadrant pain. She denies any fevers, shakes, chills. She denies any nausea or vomiting. Overall she notes that her pain is improved since time of admission. Physical Exam Gastrointestinal (Abdomen): Abdomen is soft and nondistended with positive bowel sounds. There is no rebound tenderness or guarding. Patient had minor pain with palpation of the left lower quadrant Results & Data ([facility]) Vital Signs (Past 12 Hours) Vital Signs Temp Pulse Resp BP Pulse Ox 10/18/20 22:54 37.4 C 74 16 112/68 94 PG Care Time/CCT Total # of Minutes Spent Total Time Spent with Patient: Total time spent is greater than 50% in coordination of care (as documented) at patient's floor/unit and/or counseling patient: Coding Level of Care Code 95558 Subseq Hosp Care Lvl 1 Diagnoses Diverticulitis of intestine with abscess K57.20 Diverticulitis bleeding: without bleeding Diverticulitis site: large intestine (1) Diverticulitis of intestine with abscess Diverticulitis bleeding: without bleeding Diverticulitis site: large intestine Qualified Code(s): K57.20 - Diverticulitis of large intestine with perforation and abscess without bleeding
[2020-10-19 06:13] LABS: Basophils # (auto) 0.03 K/uL (0-0.2); Basophils % (auto) 0.2 %; Eosinophils # (auto) 0.03 K/uL (0-0.5); Eosinophils % (auto) 0.2 %; Hematocrit (blood only) 35.7 % (37-47); Hemoglobin 11.8 g/dL (12.0-16.0); Immature Granulocytes # (auto) 0.05 K/uL (0.00-0.02); Immature Granulocytes % (auto) 0.3 %; Lymphocytes # (auto) 1.76 K/uL (1.2-3.4); Lymphocytes % (auto) 9.2 %; Mean Corpuscular Hemoglobin 30.5 pg (25-34); Mean Corpuscular Hgb Conc 33.1 g/dL (32-36); Mean Corpuscular Volume 92.2 fL (80-100); Mean Platelet Volume 9.9 fL (7.4-10.4); Monocytes # (auto) 0.95 K/uL (0.11-0.59); Monocytes % (auto) 4.9 %; Neutrophils % (auto) 85.2 %; Platelet Count 287 K/uL (130-400); RDW Coefficient of Variation 14.2 % (11.5-14.5); RDW Standard Deviation 47.5 fL (36.4-46.3); Red Blood Count 3.87 M/uL (4.2-5.4); White Blood Count 19.22 K/uL (4.8-10.8)
[2020-10-19 06:30] LABS: BUN Creatinine Ratio 12.5 (10-20); Calcium 8.5 mg/dl (8.5-10.1); Creatinine Clr Calc Pharmacy 78.2 ml/min; Est GFR (African American) 101.4 ml/min; Est GFR (Non-African American) 87.5 ml/min; Potassium 3.5 mmol/L (3.5-5.1)
--- NOTE | 2020-10-19 09:54 | Hospitalist Progress Note ---
Date of Service October 19, 2020 Assessment & Plan (1) Diverticulitis of intestine with abscess: Plan: WBC mildly improved Zosyn NPO except ice ships and sips, will evaluate for clear liquids later today LR @ 125 ml/hr Appreciate surgery recommendations Plan: Lovenox 40mg SQ daily for VTE prophylaxis Admission and Anticipated Discharge Date Admission Date: October 18, 2020 Subjective No fevers or chills, reports not sleeping well last night but despite this her fatigue has improved. Desperate to have some sarmad carlos. Abdominal pain mild only on palpation, none at rest. No nausea or vomiting. Passing flatus. Review of Systems Review of Systems: All systems reviewed & are unremarkable except as noted in HPI & below Physical Exam Constitutional: WD/WN, vitals as above ENMT: Mouth: + dry oral mucous membranes Respiratory: normal respiratory effort, lungs clear to auscultation Cardiovascular: RRR, no murmur, no edema Gastrointestinal (Abdomen): Inspection/Auscultation: normal bowel sounds; abdomen not distended Percussion/Palpation: + abdomen tender (mild central/LLQ tenderness, improved from yesterday) and abdomen soft; no guarding, abdomen not rigid and no hepatosplenomegaly Psychiatric: A+Ox3, euthymic affect Results & Data Results & Data ([facility]) Vital Signs (Past 12 Hours) Vital Signs Temp Pulse Resp BP Pulse Ox 10/19/20 07:30 36.8 C 68 16 93/59 L 94 10/18/20 22:54 37.4 C 74 16 112/68 94 PG Care Time/CCT Total # of Minutes Spent Total Time Spent with Patient: Total time spent is greater than 50% in coordination of care (as documented) at patient's floor/unit and/or counseling patient: Coding Level of Care Code 04727 Subseq Hosp Care Lvl 2 Diagnoses Diverticulitis of intestine with abscess K57.20 Diverticulitis bleeding: without bleeding Diverticulitis site: large intestine (1) Diverticulitis of intestine with abscess Diverticulitis bleeding: without bleeding Diverticulitis site: large intestine Qualified Code(s): K57.20 - Diverticulitis of large intestine with perforation and abscess without bleeding
[2020-10-19] MEDS: HYDROmorphone INJ 0.5 MG/0.5 ML SYR IV PRN (15:19)
[2020-10-19] MEDS: ONDANSETRON INJ 2 MG/ML 2 ML VIAL IV PRN (15:25)
[2020-10-19] MEDS: ENOXAPARIN INJ 40 MG/0.4 ML SYR SQ SCH (22:20)
[2020-10-20] MEDS: PIPERACILLIN/TAZOBACTAM 3.375 GM in DEXTROSE 5% 100 ML IV SCH ×3 (01:51→18:45)
[2020-10-20] MEDS: ACETAMINOPHEN 1,000 MG/100 ML VIAL IV PRN ×2 (01:56→14:00)
[2020-10-20 05:30] LABS: Basophils # (auto) 0.03 K/uL (0-0.2); Basophils % (auto) 0.2 %; Eosinophils % (auto) 0.8 %; Hematocrit (blood only) 33.7 % (37-47); Hemoglobin 10.7 g/dL (12.0-16.0); Immature Granulocytes # (auto) 0.03 K/uL (0.00-0.02); Immature Granulocytes % (auto) 0.2 %; Lymphocytes # (auto) 1.59 K/uL (1.2-3.4); Mean Corpuscular Hemoglobin 29.9 pg (25-34); Mean Corpuscular Hgb Conc 31.8 g/dL (32-36); Mean Corpuscular Volume 94.1 fL (80-100); Mean Platelet Volume 10.1 fL (7.4-10.4); Monocytes # (auto) 0.87 K/uL (0.11-0.59); Monocytes % (auto) 7.1 %; Neutrophils # (auto) 9.62 K/uL (1.4-6.5); Neutrophils % (auto) 78.7 %; Platelet Count 269 K/uL (130-400); RDW Coefficient of Variation 14.1 % (11.5-14.5); RDW Standard Deviation 48.8 fL (36.4-46.3); Red Blood Count 3.58 M/uL (4.2-5.4); White Blood Count 12.24 K/uL (4.8-10.8)
[2020-10-20] MEDS: LACTATED RINGER'S 1,000 ML IV SCH ×3 (05:57→22:21)
[2020-10-20 06:01] LABS: BUN Creatinine Ratio 12.4 (10-20); Calcium 8.4 mg/dl (8.5-10.1); Creatinine Clr Calc Pharmacy 76.1 ml/min; Est GFR (African American) 98.1 ml/min; Est GFR (Non-African American) 84.6 ml/min; Potassium 3.6 mmol/L (3.5-5.1)
--- NOTE | 2020-10-20 08:26 | Hospitalist Progress Note ---
Date of Service October 20, 2020 Assessment & Plan (1) Diverticulitis of intestine with abscess: Plan: First episode CTAP with diverticulitis with peridiverticular 3.2 x 1.9 cm abscess WBC trending down to 12 from 19k. Afebrile Zosyn --> plans to switch to Augmentin tomorrow as discussed with Dr Ramsey for possible d/c. Will need continued for at least 2 weeks, GI f/u for c-scope in future NPO except ice ships and sips--> advanced to clear liquids today and will advanc e tomorrow LR @ 125 ml/hr Appreciate surgery recommendations Plan: Lovenox 40mg SQ daily for VTE prophylaxis Dispo: possible d/c tomorrow on oral antibiotics Admission and Anticipated Discharge Date Admission Date: October 18, 2020 Subjective Patient seen this morning. Doing well. Tolerated diet this morning, no abdominal pain. Passing gas and had episode of diarrhea today. Discussed switching to oral antibiotics tomorrow and if tolerates diet she is hopeful for discharge. Would like to get some sleep tonight -- will ask RN to pass along to avoid unnecessary interruptions if possible. No fever, chills, chest pain, shortness of breath, n/v/dysuria at this time. Review of Systems Review of Systems: All systems reviewed & are unremarkable except as noted in HPI & below Physical Exam Constitutional: WD/WN, vitals as above Eyes: + anicteric sclerae and PERRL ENMT: Mouth: + dry oral mucous membranes (improved) Respiratory: normal respiratory effort, lungs clear to auscultation Cardiovascular: RRR, no murmur, no edema Gastrointestinal (Abdomen): Inspection/Auscultation: normal bowel sounds; abdomen not distended Percussion/Palpation: abdomen soft; abdomen nontender, no guarding, abdomen not rigid and no hepatosplenomegaly Skin: normal turgor; no rashes Psychiatric: A+Ox3, euthymic affect Results & Data Results & Data ([facility]) Vital Signs (Past 12 Hours) Vital Signs Temp Pulse Resp BP Pulse Ox 10/20/20 07:09 37.0 C 48 L 14 94/54 L 95 10/19/20 22:08 37.3 C 67 16 96/59 L 95 Laboratory Results 10/20/20 10/20/20 Range/Units 04:44 04:44 WBC 12.24 H (4.8-10.8) K/uL RBC 3.58 L (4.2-5.4) M/uL Hgb 10.7 L (12.0-16.0) g/dL Hct 33.7 L (37-47) % MCV 94.1 (80-100) fL MCH 29.9 (25-34) pg MCHC 31.8 L (32-36) g/dL RDW Std Deviation 48.8 H (36.4-46.3) fL RDW Coeff of Tito 14.1 (11.5-14.5) % Plt Count 269 (130-400) K/uL MPV 10.1 (7.4-10.4) fL Immature Gran % (Auto) 0.2 % Neut % (Auto) 78.7 % Lymph % (Auto) 13.0 % [place] % (Auto) 7.1 % Eos % (Auto) 0.8 % Baso % (Auto) 0.2 % Neut # (Auto) 9.62 H (1.4-6.5) K/uL Lymph # (Auto) 1.59 (1.2-3.4) K/uL [place] # (Auto) 0.87 H (0.11-0.59) K/uL Eos # (Auto) 0.10 (0-0.5) K/uL Baso # (Auto) 0.03 (0-0.2) K/uL Immature Gran # (Auto) 0.03 H (0.00-0.02) K/uL Sodium 140 (136-145) mmol/L Potassium 3.6 (3.5-5.1) mmol/L Chloride 109 H (98-107) mmol/L Carbon Dioxide 26 (21-32) mmol/L Anion Gap 5.0 (3-11) BUN 9 (7-18) mg/dl Creatinine 0.73 (0.6-1.2) mg/dl Est Cr Clr Drug Dosing 76.1 ml/min Est GFR ( Amer) 98.1 ml/min Est GFR (Non-Af Amer) 84.6 ml/min BUN/Creatinine Ratio 12.4 (10-20) Glucose 85 (70-99) mg/dl Calcium 8.4 L (8.5-10.1) mg/dl PG Care Time/CCT Total # of Minutes Spent Total Time Spent with Patient: Total time spent is greater than 50% in coordination of care (as documented) at patient's floor/unit and/or counseling patient: Coding Level of Care Code 26304 Subseq Hosp Care Lvl 2 Diagnoses Diverticulitis of intestine with abscess K57.20 Diverticulitis bleeding: without bleeding Diverticulitis site: large intestine (1) Diverticulitis of intestine with abscess Diverticulitis bleeding: without bleeding Diverticulitis site: large intestine Qualified Code(s): K57.20 - Diverticulitis of large intestine with perforation and abscess without bleeding
--- NOTE | 2020-10-20 09:16 | Surgery Progress Note ---
Date of Service October 20, 2020 Assessment & Plan Admission and Anticipated Discharge Date Admission Date: October 18, 2020 Subjective Patient doing well Afebrile, WBC decreasing Really taking no pain medication Begun on clear liquids today Possible discharge tomorrow on oral antibiotics for at least 2 weeks Results & Data ([facility]) Vital Signs (Past 12 Hours) Vital Signs Temp Pulse Resp BP Pulse Ox 10/20/20 07:09 37.0 C 48 L 14 94/54 L 95 10/19/20 22:08 37.3 C 67 16 96/59 L 95 PG Care Time/CCT Total # of Minutes Spent Total Time Spent with Patient: Total time spent is greater than 50% in coordinat ion of care (as documented) at patient's floor/unit and/or counseling patient: Coding Level of Care Code 85695 Subseq Hosp Care Lvl 2
[2020-10-20] MEDS: ENOXAPARIN INJ 40 MG/0.4 ML SYR SQ SCH (22:23)
[2020-10-20] MEDS: ZOLPIDEM TARTRATE 5 MG TAB PO PRN (22:29)
--- NOTE | 2020-10-21 05:08 | Surgery Progress Note ---
Date of Service October 21, 2020 Assessment & Plan (1) Diverticulitis of intestine with abscess: Plan: Patient very anxious regarding her bradycardia and also still on clear liquids We will advance to full liquids and the medical team will assess her would recommend f/u with [facility] in [place] does not mean she requires surgery they would likely perform colonoscopy also Followup CT 1-2 weeks if she cont to do well also can f/u with me 1-2 weeks She will likely stay in the hospital least 1 more day Admission and Anticipated Discharge Date Admission Date: October 18, 2020 Subjective Overall she is stable She is somewhat anxious because of her bradycardia and she does not want to go home and become nauseated She wants to stay at least 1 more day Review of Systems Review of Systems: All systems reviewed & are unremarkable except as noted in HPI & below Physical Exam Physical Exam: Abdomen is flat and soft minimal tenderness Constitutional: well developed and well nourished; no acute distress Eyes: + anicteric sclerae Respiratory: normal respiratory effort; no respiratory distress Cardiovascular: Rate/Rhythm: regular rate Gastrointestinal (Abdomen): Percussion/Palpation: abdomen soft Musculoskeletal: Gait: normal gait Skin: no rashes, warm and dry Neurologic: awake Psychiatric: Orientation: alert Results & Data ([facility]) Vital Signs (Past 12 Hours) Vital Signs Temp Pulse Resp BP Pulse Ox 10/20/20 21:57 37.2 C 46 L 14 160/82 H 94 PG Care Time/CCT Total # of Minutes Spent Total Time Spent with Patient: Total time spent is greater than 50% in coordination of care (as documented) at patient's floor/unit and/or counseling patient: Coding Level of Care Code 85342 Inpt Consult Level 3 Diagnoses Diverticulitis of intestine with abscess K57.20 Diverticulitis bleeding: without bleeding Diverticulitis site: large intestine (1) Diverticulitis of intestine with abscess Diverticulitis bleeding: without bleeding Diverticulitis site: large intestine Qualified Code(s): K57.20 - Diverticulitis of large intestine with perforation and abscess without bleeding
[2020-10-21] MEDS: LACTATED RINGER'S 1,000 ML IV SCH (05:45)
[2020-10-21] MEDS: HYDROmorphone INJ 0.5 MG/0.5 ML SYR IV PRN (05:46)
--- NOTE | 2020-10-21 07:52 | Hospitalist Progress Note ---
Date of Service October 21, 2020 Assessment & Plan (1) Diverticulitis of intestine with abscess: Plan: First episode CTAP with diverticulitis with peridiverticular 3.2 x 1.9 cm abscess General Surgery on consult WBC now wnl Afebrile Switched to Augmentin today (day 4 of treatment) --> needs to complete 2 week course at least per Dr. Ramsey. Will need f/u CT in 1-2 months General surgery rec f/u C colorectal, however patient would like to follow up with Dr. Price as she has in the past for the time being and then possibly consider [facility] in [place] where she has friends/preferences already No further IVF Tolerated clear liquids yesterday --> advanced to full liquid diet for today Reported BM, loose but some forming Checked stool for cdiff given reported diarrhea, although not frequent Antiemetics, pain medications as needed -- has not required Possible advancement to low fiber diet tomorrow and if tolerates, possible d/c home with outpatient follow up Recent fall/wrist sprain/broken ribs and muscle tightness --> had relief of discomfort with lidocaine patch at home for ribs and would like to try while inpatient. Ordered (2) Abnormal ECG: Plan: on current EKG with minor T wave abn, albaevr on admission had anterolateral ST depression and increased T wave inversions Has not had exertional symptoms but felt beating slowly Cardiology consulted -- appreciate assistance [place] given lack of symtpoms, not urgent (unless of course became symptomatic), and would recommend having patient get in for an outpatient stress test once recovered from current illness so that we have a better idea of baseline and to make sure "not a problem" However, if patient would undergo elective surgical correction of diverticular disease, would obtain stress echo prior to that to better risk stratify (3) Sinus bradycardia: Plan: Minimal vs asymptomatic. She felt beating slowly. Active lifestyle. Cardiology consulted as above. Likely high vagal tone. She is not on any chronotropic agents Could be from some of the pain medications No heart block noted Rec heart rate apple and to monitor periodically Plan: As above DVT Proph -Lovenox 40mg SQ daily for VTE prophylaxis Dispo: possible d/c tomorrow on oral antibiotics if tolerates low fiber diet Admission and Anticipated Discharge Date Admission Date: October 18, 2020 Subjective Eval this morning. Moving bowels. Liquid + some formed. "Baby poop" consistency/color. No fever. Abd pain resolved but feels some muscle tightness when up and moving, similar to episodes in past and agreeable for lidocaine patch to see if effective. Had slow HR, felt slow. Cardiology consulted -- no CP/SOB reported. Healthy and active. Likely vasovagal tone/pain medications but prior EKG with some depression and recs for outpatient stress testing once recovered from current illness. Also downloading instant HR body design checker to monitor. She would like f/u with Dr. Price as she had him in the past. Discussed no colo- rectal but we can arrange this. Review of Systems Review of Systems: All systems reviewed & are unremarkable except as noted in HPI & below Physical Exam Constitutional: WD/WN, vitals as above Eyes: + anicteric sclerae and PERRL ENMT: Mouth: oral mucous membranes not dry Respiratory: normal respiratory effort, lungs clear to auscultation Cardiovascular: RRR, no murmur, no edema Gastrointestinal (Abdomen): Inspection/Auscultation: normal bowel sounds; abdomen not distended Percussion/Palpation: abdomen soft; abdomen nontender, no guarding, abdomen not rigid and no hepatosplenomegaly Skin: normal turgor; no rashes Psychiatric: A+Ox3, euthymic affect (anxious about having issues at home) Results & Data Results & Data ([facility]) Vital Signs (Past 12 Hours) Vital Signs Temp Pulse Resp BP Pulse Ox 10/21/20 07:21 36.8 C 50 L 16 163/68 H 91 10/20/20 21:57 37.2 C 46 L 14 160/82 H 94 Laboratory Results 10/21/20 10/21/20 10/21/20 Range/Units 08:15 08:15 08:15 WBC 9.83 (4.8-10.8) K/uL RBC 3.62 L (4.2-5.4) M/uL Hgb 10.8 L (12.0-16.0) g/dL Hct 33.2 L (37-47) % MCV 91.7 (80-100) fL MCH 29.8 (25-34) pg MCHC 32.5 (32-36) g/dL RDW Std Deviation 45.6 (36.4-46.3) fL RDW Coeff of Tito 13.7 (11.5-14.5) % Plt Count 284 (130-400) K/uL MPV 10.0 (7.4-10.4) fL Immature Gran % (Auto) 0.3 % Neut % (Auto) 77.8 % Lymph % (Auto) 13.1 % [place] % (Auto) 8.0 % Eos % (Auto) 0.6 % Baso % (Auto) 0.2 % Neut # (Auto) 7.64 H (1.4-6.5) K/uL Lymph # (Auto) 1.29 (1.2-3.4) K/uL Mora # (Auto) 0.79 H (0.11-0.59) K/uL Eos # (Auto) 0.06 (0-0.5) K/uL Baso # (Auto) 0.02 (0-0.2) K/uL Immature Gran # (Auto) 0.03 H (0.00-0.02) K/uL Sodium 142 (136-145) mmol/L Potassium 3.5 (3.5-5.1) mmol/L Chloride 111 H (98-107) mmol/L Carbon Dioxide 24 (21-32) mmol/L Anion Gap 7.0 (3-11) BUN 5 L (7-18) mg/dl Creatinine 0.62 (0.6-1.2) mg/dl Est Cr Clr Drug Dosing 89.6 ml/min Est GFR ( Amer) 107.4 ml/min Est GFR (Non-Af Amer) 92.7 ml/min BUN/Creatinine Ratio 8.0 L (10-20) Glucose 83 (70-99) mg/dl Calcium 8.2 L (8.5-10.1) mg/dl Albumin 2.7 L (3.4-5.0) gm/dl PG Care Time/CCT Total # of Minutes Spent Total Time Spent with Patient: Total time spent is greater than 50% in coordination of care (as documented) at patient's floor/unit and/or counseling patient: Coding Level of Care Code 88074 Subseq Hosp Care Lvl 2 Diagnoses Diverticulitis of intestine with abscess K57.20 Diverticulitis bleeding: without bleeding Diverticulitis site: large intestine Abnormal ECG R94.31 Sinus bradycardia R00.1 (1) Diverticulitis of intestine with abscess Diverticulitis bleeding: without bleeding Diverticulitis site: large intestine Qualified Code(s): K57.20 - Diverticulitis of large intestine with perforation and abscess without bleeding
[2020-10-21 08:29] LABS: Basophils # (auto) 0.02 K/uL (0-0.2); Basophils % (auto) 0.2 %; Eosinophils # (auto) 0.06 K/uL (0-0.5); Eosinophils % (auto) 0.6 %; Hematocrit (blood only) 33.2 % (37-47); Hemoglobin 10.8 g/dL (12.0-16.0); Immature Granulocytes # (auto) 0.03 K/uL (0.00-0.02); Immature Granulocytes % (auto) 0.3 %; Lymphocytes # (auto) 1.29 K/uL (1.2-3.4); Lymphocytes % (auto) 13.1 %; Mean Corpuscular Hemoglobin 29.8 pg (25-34); Mean Corpuscular Hgb Conc 32.5 g/dL (32-36); Mean Corpuscular Volume 91.7 fL (80-100); Monocytes # (auto) 0.79 K/uL (0.11-0.59); Neutrophils # (auto) 7.64 K/uL (1.4-6.5); Neutrophils % (auto) 77.8 %; Platelet Count 284 K/uL (130-400); RDW Coefficient of Variation 13.7 % (11.5-14.5); RDW Standard Deviation 45.6 fL (36.4-46.3); Red Blood Count 3.62 M/uL (4.2-5.4); White Blood Count 9.83 K/uL (4.8-10.8)
[2020-10-21 08:55] LABS: Calcium 8.2 mg/dl (8.5-10.1); Creatinine Clr Calc Pharmacy 89.6 ml/min; Est GFR (African American) 107.4 ml/min; Est GFR (Non-African American) 92.7 ml/min; Potassium 3.5 mmol/L (3.5-5.1)
[2020-10-21] MEDS: AMOXICILLIN/CLAVULANATE 875 MG TAB PO SCH ×2 (09:37→17:47)
--- NOTE | 2020-10-21 14:24 | Cardiology Consultation ---
Date of Consultation October 21, 2020 Assessment & Plan (1) Sinus bradycardia: Patient with transient, minimally or asymptomatic mild bradycardia this morning. She likely has high vagal tone due to physically active lifestyle, this would be increased in the context of abdominal discomfort (from diverticulitis) as well as due to the administration of narcotics (hydromorphone). Her heart rate was at baseline at the time of my examination. She had no evidence of chronotropic incompetence, her heart rate was normal or even mildly tachycardic on admission. No evidence of underlying heart block. She is not routinely on any negative chronotropic medications at home. Thus, suspect vasovagal phenomenon, no further work-up in the absence of recurrent bradycardia/symptoms. (2) Abnormal ECG: Her current minor T wave abnormalities across the precordium are nonspecific and chronic. She has not had any exertional symptoms to suggest myocardial ischemia. However, her admission ECG was abnormal with anterolateral ST depression and increased T wave inversions. Given this unexplained finding, did recommend that she undergo a stress echocardiogram at some point after she has fully recovered from her diverticulitis (perhaps a month from now). She should seek prompt attention if she has any cardiac symptoms prior to that time. (3) Diverticulitis of intestine with abscess: Conservatively managed. If she does proceed to surgery that is elective, would obtain stress echocardiogram prior to procedure to better risk stratify (given her abnormal ECG on admission). History of Present Illness Attending Physician: Desmond Del Rio MD History of Present Illness 70-year-old generally healthy woman who was admitted with diverticulitis which was managed conservatively, she had a brief episode of mildly symptomatic bradycardia this morning and underwent cardiology evaluation for this. Patient is physically active at baseline, walking significant distances and playing tennis regularly, she notes that her usual heart rate is in the low 50s bpm range. She denies any dyspnea exertion, chest discomfort, subjective palpitations, presyncope, or syncope. She noted only mild anxiety when the nurses conveyed that her heart rate was in the 40s bpm range, she denied any actual lightheadedness, presyncope, or syncope. No chest pain or dyspnea. She was that comfortable at the time of my evaluation this morning. Allergies Allergy/AdvReac Type Severity Reaction Status Date / Time prednisone AdvReac Intermediate NERVOUS Verified 08/22/20 16:25 AND SHAKEY FEELING-NOT SURE IF GOT HIVES Home Medications Medication Instructions Recorded Confirmed Type clobetasol 0.05 % topical ointment 1 applic TOPICAL QID #1 gm 12/12/18 10/18/20 History ascorbic acid (vitamin C) 250 mg 250 mg PO DAILY 06/24/19 10/18/20 History tablet (Vitamin C) calcium carbonate 600 mg (1,500 1 tab PO DAILY 06/24/19 10/18/20 History mg)-vitamin D3 200 unit tablet (Calcium 600 + D(3)) multivitamin 1 tab PO DAILY 06/24/19 10/18/20 History omega 3 350 mg-dha 235 mg-epa 90 1 cap PO DAILY 06/24/19 10/18/20 History mg-fish oil 597 mg capsule,delay rel ([place]-3) valacyclovir 500 mg tablet 500 mg PO BID #6 tab 08/22/20 08/22/20 Rx docusate sodium 100 mg capsule 100 mg PO BID #60 cap 09/18/20 10/18/20 Rx (Colace) lidocaine 4 % topical patch 1 patch TOPICAL DAILY #15 ea 09/18/20 10/18/20 Rx sennosides 8.6 mg tablet (Senokot) 8.6 mg PO HS #30 tab 09/18/20 Rx Patient History Medical History Abnormal finding on mammography Depression Lichen sclerosus et atrophicus Surgical History No pertinent past surgical history Family History Uterine cancer Mother Social History Smoking Status: Never smoker Hx Alcohol Use: Yes Alcohol type: wine Hx Substance Use: No Preferred Language: [employer] Required: No Beliefs That Will Affect Care: None Current Living Situation: Spouse Feels Safe at Home: Yes Assistive Devices: None Physical Exam Physical Exam: No distress. BP mildly hypotensive yesterday, normotensive to mildly hypertensive today. Pulse 52 bpm and regular at the time of my exam. Skin: no ecchymoses or generalized lesions. HEENT: unremarkable. Neck: no JVD or carotid bruits. Lungs: clear. Cardiac: regular rhythm with normal S1 and S2, no murmur or gallop. Abdomen: benign. Extremities: no edema, pulses intact. Neurologic: normal affect and conversation, nonfocal. Results & Data ([facility]) Vital Signs (Past 12 Hours) Vital Signs Temp Pulse Resp BP Pulse Ox 10/21/20 07:21 98.2 F 50 L 16 163/68 H 91 Laboratory Results Hemoglobin 10.8 with normal white count and platelet count. Potassium 3.5 with creatinine 0.62. Magnesium not checked. Diagnostic Findings ECG today showed sinus bradycardia at 49 bpm with nonspecific minor anterior T wave abnormality. ECG 3 days ago showed sinus tachycardia at 103 bpm with a PVC, there is minor anterolateral/lateral ST depression and T wave inversions. An ECG from 09/18/2020 showed sinus rhythm with nonspecific anterior T wave abnormalities, similar to her current ECG. An ECG from 1998 showed sinus rhythm, also with nonspecific anterior T wave flattening. PG Care Time/CCT Total # of Minutes Spent Total Time Spent with Patient: Total time spent is greater than 50% in coordination of care (as documented) at patient's floor/unit and/or counseling patient: Coding Level of Care Code 84123 Initial Inpt Care Lvl 3 Diagnoses Sinus bradycardia R00.1 Diverticulitis of intestine with abscess K57.20 Diverticulitis bleeding: without bleeding Diverticulitis site: large intestine Abnormal ECG R94.31 (1) Diverticulitis of intestine with abscess Diverticulitis bleeding: without bleeding Diverticulitis site: large intestine Qualified Code(s): K57.20 - Diverticulitis of large intestine with perforation and abscess without bleeding
[2020-10-21] MEDS: ONDANSETRON INJ 2 MG/ML 2 ML VIAL IV PRN (14:41)
[2020-10-21] MEDS ORDERED: POTASSIUM CHLORIDE CRTAB 20 MEQ TABCR PO STA (16:23)
--- NOTE | 2020-10-21 19:25 | Electrocardiogram Report ---
Test Reason : Blood Pressure : / mmHG Vent. Rate : 049 BPM Atrial Rate : 049 BPM P-R Int : 126 ms QRS Dur : 094 ms QT Int : 482 ms P-R-T Axes : 050 035 014 degrees QTc Int : 435 ms Sinus bradycardia Nonspecific T wave abnormality Anteroseptal leads Otherwise normal ECG When compared with ECG of 18-OCT-2020 05:02, Premature ventricular complexes are no longer Present Vent. rate has decreased BY [address] no longer depressed in Anterolateral leads T wave inversion no longer evident in Anterolateral leads Confirmed by Reed High ([id number]) on 10/21/2020 7:25:08 PM Referred By: REFERRED SELF Confirmed By:Reed High
[2020-10-21] MEDS: ENOXAPARIN INJ 40 MG/0.4 ML SYR SQ SCH (21:55)
[2020-10-21] MEDS: ZOLPIDEM TARTRATE 5 MG TAB PO PRN (22:57)
--- NOTE | 2020-10-22 06:34 | Surgery Progress Note ---
Date of Service October 22, 2020 Assessment & Plan (1) Diverticulitis of intestine with abscess: Plan: Patient with some hypoxia during the evening, also fever of 38 to She currently appears to be stable Chest x-ray has been ordered A.m. labs are pending With the fever we may consider repeat CT just to be sure there are no changes regarding her Diverticulitis with abscess I did discuss with her follow-up with colorectal surgery/[place] which she does agree to I would discussed this with the medical team later this morning Admission and Anticipated Discharge Date Admission Date: October 18, 2020 Subjective Patient had a low-grade fever 38 2 last evening Her O2 sat was low in the 80s She did have some oxygen but apparently is somewhat improved at the present time She has no abdominal pain She was seen by cardiology-for outpatient echo Review of Systems Review of Systems: All systems reviewed & are unremarkable except as noted in HPI & below Physical Exam Constitutional: well developed; no acute distress Patient is awake and alert, she appears to be breathing comfortably Eyes: + anicteric sclerae Respiratory: normal respiratory effort; no respiratory distress Cardiovascular: Rate/Rhythm: regular rate Gastrointestinal (Abdomen): Percussion/Palpation: abdomen soft Neurologic: awake Psychiatric: Orientation: alert Results & Data ([facility]) Vital Signs (Past 12 Hours) Vital Signs Temp Pulse Resp BP Pulse Ox 10/21/20 22:49 37.5 C 94 10/21/20 22:42 38.2 C H 73 16 127/71 85 L PG Care Time/CCT Total # of Minutes Spent Total Time Spent with Patient: Total time spent is greater than 50% in coordination of care (as documented) at patient's floor/unit and/or counseling patient: Coding Level of Care Code None Diagnoses Diverticulitis of intestine with abscess K57.20 Diverticulitis bleeding: without bleeding Diverticulitis site: large intestine (1) Diverticulitis of intestine with abscess Diverticulitis bleeding: without bleeding Diverticulitis site: large intestine Qualified Code(s): K57.20 - Diverticulitis of large intestine with perforation and abscess without bleeding
[2020-10-22 07:21] LABS: Hematocrit (blood only) 35.2 % (37-47); Hemoglobin 11.7 g/dL (12.0-16.0); Mean Corpuscular Hemoglobin 30.2 pg (25-34); Mean Corpuscular Hgb Conc 33.2 g/dL (32-36); Mean Platelet Volume 10.1 fL (7.4-10.4); Platelet Count 348 K/uL (130-400); RDW Coefficient of Variation 13.6 % (11.5-14.5); RDW Standard Deviation 45.3 fL (36.4-46.3); Red Blood Count 3.87 M/uL (4.2-5.4); White Blood Count 10.45 K/uL (4.8-10.8)
--- NOTE | 2020-10-22 07:38 | Hospitalist Progress Note ---
Date of Service October 22, 2020 Assessment & Plan (1) Diverticulitis of intestine with abscess: Plan: First episode CTAP with diverticulitis with peridiverticular 3.2 x 1.9 cm abscess General Surgery on consult WBC wnl Switched to Augmentin on 10/21 (currently day 5 of treatment) -->switched back to Zosyn while inpatient needs to complete 2 week course at least per Dr. Ramsey whether with PO or IV Consulted ID for recs at discharge. If IV needed, will need US Guided IV and set up home abx. CM aware and following to see if needed Will need f/u CT in 1-2 months Did have temp 38.2C last evening and hypoxia with O2 sat 85% on RA. Was placed on 2L NC and already on room air after administration Interval development of interstitial pulmonary edema and small bilateral pleural effusions. CT Chest NEGATIVE for PE, but did show b/l effusions and compressive atelectasis --> Lasix 20mg IV x 1, PO potassium supplementation to prevent worsening hypokalemia Repeat CTAP initially looked like more ovarian involvement -> reviewed by Dr. Ramsey and felt looked improved (now 2.8cm from 3.1cm) and could consider PO but will keep on IV for now as above General surgery rec f/u [facility] colorectal, however patient would like to follow up with Dr. Price as she has in the past for the time being and then possibly consider [facility] in [place] where she has friends/preferences already but she is now agreeable to f/u with [facility] No further IVF Full liquids --> ok to continue per surgery BMs slowing, still liquid but some forming Cdiff ordered Possible advancement to low fiber diet tomorrow? vs another day and if tolerates, possible d/c home with outpatient follow up on oral vs PO. Patient voiced concerns about wanting to leave tomorrow. Did discuss at length about risks but will see how her progress is tomorrow Labs in AM (2) Abnormal ECG: Plan: on current EKG with minor T wave abn, maximiliano on admission had anterolateral ST depression and increased T wave inversions Has not had exertional symptoms but felt beating slowly Cardiology consulted -- appreciate assistance [place] given lack of symtpoms, not urgent (unless of course became symptomatic), and would recommend having patient get in for an outpatient stress test once recovered from current illness so that we have a better idea of baseline and to make sure "not a problem" However, if patient would undergo elective surgical correction of diverticular disease, would obtain stress echo prior to that to better risk stratify Lipid panel wnl (3) Sinus bradycardia: Plan: Minimal vs asymptomatic. She felt beating slowly. Active lifestyle. Cardiology consulted as above. Likely high vagal tone. She is not on any chronotropic agents Could be from some of the pain medications No heart block noted Rec heart rate apple and to monitor periodically -- has good chronotropic response Plan: As above DVT Proph Lovenox 40mg SQ daily for VTE prophylaxis (had been refusing) -- CT negative for PE as above. No calf edema/erythema/evidence for DVT. Has been ambulating frequently and requested to go to [facility] as well Dispo: continued inpatient stay, ID consult pending Admission and Anticipated Discharge Date Admission Date: October 18, 2020 Subjective Seen this morning. Upset about repeat imaging -- reviewed. Discussed with Dr. Ramsey and he wants her to remain on IV abx for 2-3 weeks at discharge. Lasix and potassium for compressive atelectasis. No shortness of breath or dyspnea on exertion. Discussed temp last night could be from that but we did repeat blood cultures. She would really like to go tomorrow and states she cant stay until Tuesday. Discussed severity and will take day by day and get CM involved for IV abx and US guided IV to be placed today. Will attempt to get her discharged tomorrow if recs made and stable but did discuss could be longer. No chest pain, nausea, vomiting. Tolerating diet. Less diarrhea. Discussed with Dr. Ramsey later in morning -- he reviewed films and felt imaging looking better. Placed back on Zosyn for now and will await input from ID to see if could potentially continue oral at discharge or or would need to continue on IV. Review of Systems Review of Systems: All systems reviewed & are unremarkable except as noted in HPI & below Physical Exam Constitutional: WD/WN, vitals as above Eyes: + anicteric sclerae and PERRL ENMT: Mouth: oral mucous membranes not dry Respiratory: normal respiratory effort, lungs clear to auscultation diminished in the bases on room air Cardiovascular: RRR, no murmur, no edema Gastrointestinal (Abdomen): Inspection/Auscultation: normal bowel sounds; abdomen not distended Percussion/Palpation: abdomen soft; abdomen nontender, no guarding, abdomen not rigid and no hepatosplenomegaly Skin: normal turgor; no rashes Psychiatric: A+Ox3, euthymic affect (anxious/upset about not going home today/testing without being informed fir) Results & Data Results & [facility] ([facility]) Vital Signs (Past 12 Hours) Vital Signs Temp Pulse Resp BP Pulse Ox 10/21/20 22:49 37.5 C 94 10/21/20 22:42 38.2 C H 73 16 127/71 85 L Laboratory Results 10/22/20 10/22/20 Range/Units 06:47 06:47 WBC 10.45 (4.8-10.8) K/uL RBC 3.87 L (4.2-5.4) M/uL Hgb 11.7 L (12.0-16.0) g/dL Hct 35.2 L (37-47) % MCV 91.0 (80-100) fL MCH 30.2 (25-34) pg MCHC 33.2 (32-36) g/dL RDW Std Deviation 45.3 (36.4-46.3) fL RDW Coeff of Tito 13.6 (11.5-14.5) % Plt Count 348 (130-400) K/uL MPV 10.1 (7.4-10.4) fL Immature Gran % (Auto) 0.8 % Neut % (Auto) 73.4 % Lymph % (Auto) 13.8 % Smith % (Auto) 9.0 % Eos % (Auto) 2.7 % Baso % (Auto) 0.3 % Neut # (Auto) 7.58 H (1.4-6.5) K/uL Lymph # (Auto) 1.43 (1.2-3.4) K/uL Smith # (Auto) 0.93 H (0.11-0.59) K/uL Eos # (Auto) 0.28 (0-0.5) K/uL Baso # (Auto) 0.03 (0-0.2) K/uL Immature Gran # (Auto) 0.08 H (0.00-0.02) K/uL Sodium 141 (136-145) mmol/L Potassium 3.5 (3.5-5.1) mmol/L Chloride 109 H (98-107) mmol/L Carbon Dioxide 26 (21-32) mmol/L Anion Gap 6.0 (3-11) BUN 4 L (7-18) mg/dl Creatinine 0.61 (0.6-1.2) mg/dl Est Cr Clr Drug Dosing 91.0 ml/min Est GFR ( Amer) 108.0 ml/min Est GFR (Non-Af Amer) 93.1 ml/min BUN/Creatinine Ratio 6.4 L (10-20) Glucose 91 (70-99) mg/dl Calcium 8.6 (8.5-10.1) mg/dl Magnesium 2.0 (1.8-2.4) mg/dl Triglycerides 119 (0-150) mg/dl Cholesterol 189 (0-200) mg/dl LDL Cholesterol, Calc 134 mg/dl VLDL Cholesterol, Calc 24 mg/dl HDL Cholesterol 31 mg/dl Cholesterol/HDL Ratio 6 Diagnostic Findings Chest X-Ray 10/22/20 06:24 XR chest 1V portable CLINICAL HISTORY: Hypoxia COMPARISON STUDY: Chest radiograph October 18, 2020. FINDINGS: There has been interval development of interstitial thickening consistent with pulmonary edema. Small bilateral pleural effusions are noted. There is cardiomegaly. IMPRESSION: Interval development of interstitial pulmonary edema and small bilateral pleural effusions. ACT 112: Negative or not required by law. Electronically signed by: George Hull M.D. 10/22/2020 9:08 AM Abdomen/Pelvis CT 10/22/20 07:35 CT OF THE ABDOMEN AND PELVIS WITH CONTRAST CLINICAL HISTORY: fever, weakness, f/u diverticulitis with abscess COMPARISON STUDY: CT of the abdomen and pelvis October 18, 2020. TECHNIQUE: Following IV administration of 120 mL of Optiray, axial images of the abdomen and pelvis were obtained from the lung bases to the proximal femurs. Images were reviewed in the axial, sagittal, and coronal planes. IV contrast was administered without complication. Automated exposure control was utilized for the study. A dose lowering technique was utilized adhering to the principles of ALARA. FINDINGS: Please note that the chest CT will be reported separately. There is hepatic steatosis. No hepatic lesions are present. There is no biliary or pancreatic ductal dilatation. The spleen, adrenal glands, kidneys and pancreas are unremarkable. Moderate gallbladder wall thickening has developed since prior CT. There is no evidence for a bowel obstruction. Colonic diverticulosis is no shaun. Note is again made of inflammation within the left hemipelvis. Findings are consistent with acute diverticulitis. Note is again made of a small gas and fluid containing collection along the inferior aspect of the sigmoid colon which measures 1.6 cm. This communicates with the left adnexa. There is a 2.8 cm gas and fluid containing collection within the left ovary/left adnexa which has developed since prior examination. Smaller rim-enhancing fluid collections within the left adnexa/ovary are also noted. There is no evidence for a bowel obstruction. The appendix is normal. IMPRESSION: 1. Redemonstration of findings consistent with acute diverticulitis with contained perforation, as described above. Increase in involvement of the left adnexa with interval development of several left adnexal/ovarian fluid and gas containing collections which measure up to 2.8 cm. These are consistent with abscesses. 2. Interval development of moderate gallbladder wall thickening, a nonspecific finding. If right upper quadrant pain, ultrasound is recommended. ACT 112: Negative or not required by law. Electronically signed by: George Hull M.D. 10/22/2020 9:37 AM Chest CTA 10/22/20 07:35 CHEST CTA for PULMONARY ARTERIES CT DOSE: 1077.03 mGy.cm HISTORY: Shortness of breath. Fever. TECHNIQUE: Multiaxial CT images of the chest were performed following the intravenous administration of contrast to evaluate the pulmonary arteries. Maximal intensity projection images were also obtained. A dose lowering technique was utilized adhering to the principles of ALARA. COMPARISON STUDY: None. FINDINGS: Mild anterior wedging within a few mid thoracic spine vertebral bodies which is likely chronic. Please refer to the same day abdomen and pelvis CT for further evaluation of the abdominal structures. There are small bilateral pleural effusions which have developed in the interval. There is a small hiatus hernia. The heart is mildly enlarged. No pericardial effusion. A few subcentimeter mediastinal lymph nodes are noted. These do not meet CT criteria for pathologic involvement. No hilar lymphadenopathy. Normal caliber thoracic aorta with no evidence for dissection. No filling defects within the pulmonary arteries to suggest a pulmonary embolus. Healing left anterior fifth and sixth rib fractures. No pneumothorax. Bibasilar linear densities are nonspecific but favor subsegmental atelectasis and compressive atelectasis from the small pleural effusions. IMPRESSION: 1. No evidence for pulmonary embolus. 2. Small bilateral pleural effusions. 3. Small hiatus hernia. 4. Bibasilar linear densities favor atelectasis. A pneumonia could also a similar appearance but is considered less likely. 5. Mild cardiomegaly. ACT 112: Negative or not required by law. Electronically signed by: Rudolph Wade M.D. 10/22/2020 9:33 AM PG Care Time/CCT Total # of Minutes Spent Total Time Spent with Patient: Total time spent is greater than 50% in coordination of care (as documented) at patient's floor/unit and/or counseling patient: Coding Level of Care Code 14017 Subseq Hosp Care Lvl 3 Diagnoses Diverticulitis of intestine with abscess K57.20 Diverticulitis bleeding: without bleeding Diverticulitis site: large intestine Abnormal ECG R94.31 Sinus bradycardia R00.1 (1) Diverticulitis of intestine with abscess Diverticulitis bleeding: without bleeding Diverticulitis site: large intestine Qualified Code(s): K57.20 - Diverticulitis of large intestine with perforation and abscess without bleeding
[2020-10-22 07:57] LABS: BUN Creatinine Ratio 6.4 (10-20); Calcium 8.6 mg/dl (8.5-10.1); Est GFR (Non-African American) 93.1 ml/min; Potassium 3.5 mmol/L (3.5-5.1)
[2020-10-22 08:32] LABS: Basophils # (auto) 0.03 K/uL (0-0.2); Basophils % (auto) 0.3 %; Eosinophils # (auto) 0.28 K/uL (0-0.5); Eosinophils % (auto) 2.7 %; Immature Granulocytes # (auto) 0.08 K/uL (0.00-0.02); Immature Granulocytes % (auto) 0.8 %; Lymphocytes # (auto) 1.43 K/uL (1.2-3.4); Lymphocytes % (auto) 13.8 %; Monocytes # (auto) 0.93 K/uL (0.11-0.59); Neutrophils # (auto) 7.58 K/uL (1.4-6.5); Neutrophils % (auto) 73.4 %
[2020-10-22] MEDS ORDERED: OPTIRAY 320 125ml IV ONE (08:58)
--- NOTE | 2020-10-22 09:09 | XRay Report ---
XR chest 1V portable CLINICAL HISTORY: Hypoxia COMPARISON STUDY: Chest radiograph October 18, 2020. FINDINGS: There has been interval development of interstitial thickening consistent with pulmonary ed haider. Small bilateral pleural effusions are noted. There is cardiomegaly. IMPRESSION: Interval development of interstitial pulmonary edema and small bilateral pleural effusion s. ACT 112: Negative or not required by law. Electronically signed by: George Hull M.D. 10/22/2020 9:08 AM
[2020-10-22] MEDS ORDERED: FUROSEMIDE 20 MG in SYRINGE 0 ML IV ONE (09:10)
[2020-10-22] MEDS ORDERED: POTASSIUM CHLORIDE CRTAB 20 MEQ TABCR PO STA (09:10)
--- NOTE | 2020-10-22 09:35 | CT Scan Report ---
CHEST CTA for PULMONARY ARTERIES CT DOSE: 1077.03 mGy.cm HISTORY: Shortness of breath. Fever. TECHNIQUE: Multiaxial CT images of the chest were performed following the intravenous administration of contrast to evaluate the pulmonary arteries. Maximal intensity projection images were also obtaine d. A dose lowering technique was utilized adhering to the principles of ALARA. COMPARISON STUDY: None. 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 Please refer to the same day abdomen and pelvis CT for further evaluation of the abdominal struc tures. There are small bilateral pleural effusions which have developed in the interval. There is a s mall hiatus hernia. The heart is mildly enlarged. No pericardial effusion. A few subcentimeter medias tinal lymph nodes are noted. These do not meet CT criteria for pathologic involvement. No hilar lymph adenopathy. Normal caliber thoracic aorta with no evidence for dissection. No filling defects within the pulmonary arteries to suggest a pulmonary embolus. Healing left anterior fifth and sixth rib frac tures. No pneumothorax. Bibasilar linear densities are nonspecific but favor subsegmental atelectasis and compressive atelectasis from the small pleural effusions. IMPRESSION: 1. No evidence for pulmonary embolus. 2. Small bilateral pleural effusions. 3. Small hiatus hernia. 4. Bibasilar linear densities favor atelectasis. A pneumonia could also a similar appearance but is c onsidered less likely. 5. Mild cardiomegaly. ACT 112: Negative or not required by law. Electronically signed by: Rudolph Wade M.D. 10/22/2020 9:33 AM
--- NOTE | 2020-10-22 09:39 | CT Scan Report ---
CT OF THE ABDOMEN AND PELVIS WITH CONTRAST CLINICAL HISTORY: fever, weakness, f/u diverticulitis with abscess COMPARISON STUDY: CT of the abdomen and pelvis October 18, 2020. TECHNIQUE: Following IV administration of 120 mL of Optiray, axial images of the abdomen and pelvis w ere obtained from the lung bases to the proximal femurs. Images were reviewed in the axial, sagittal, and coronal planes. IV contrast was administered without complication. Automated exposure control w as utilized for the study. A dose lowering technique was utilized adhering to the principles of BIMAL Navarrete. FINDINGS: Please note that the chest CT will be reported separately. There is hepatic steatosis. No h epatic lesions are present. There is no biliary or pancreatic ductal dilatation. The spleen, adrenal glands, kidneys and pancreas are unremarkable. Moderate gallbladder wall thickening has developed sin ce prior CT. There is no evidence for a bowel obstruction. Colonic diverticulosis is noted. Note is a gain made of inflammation within the left hemipelvis. Findings are consistent with acute diverticulit is. Note is again made of a small gas and fluid containing collection along the inferior aspect of th e sigmoid colon which measures 1.6 cm. This communicates with the left adnexa. There is a 2.8 cm gas and fluid containing collection within the left ovary/left adnexa which has developed since prior exa mination. Smaller rim-enhancing fluid collections within the left adnexa/ovary are also noted. There is no evidence for a bowel obstruction. The appendix is normal. IMPRESSION: 1. Redemonstration of findings consistent with acute diverticulitis with contained perforation, as de scribed above. Increase in involvement of the left adnexa with interval development of several left a dnexal/ovarian fluid and gas containing collections which measure up to 2.8 cm. These are consistent with abscesses. 2. Interval development of moderate gallbladder wall thickening, a nonspecific finding. If right uppe r quadrant pain, ultrasound is recommended. ACT 112: Negative or not required by law. Electronically signed by: George Hull M.D. 10/22/2020 9:37 AM
[2020-10-22] MEDS ORDERED: PIPERACILL/TAZOBAC CONSULT ACTIVE PRN (10:13)
[2020-10-22] MEDS ORDERED: PIPERACILLIN/TAZOBACTAM 3.375 GM/115 ML BAG IV ONE (10:30)
[2020-10-22] MEDS: LIDOCAINE 5% 1 PATCH TD SCH (10:33)
[2020-10-22] MEDS: AMOXICILLIN/CLAVULANATE 875 MG TAB PO SCH (10:40)
--- NOTE | 2020-10-22 12:56 | Cardiology Progress Note ---
Date of Service October 22, 2020 Assessment & Plan (1) Sinus bradycardia: Plan: As noted, this is most likely physiologic vagal tone as previously noted, most likely physiologic high vagal tone. No cardiopulmonary symptoms, no specific treatment necessary. (2) Abnormal ECG: Plan: Given unusual ECG on admission, recommend follow-up stress echo after she recovers from her diverticulitis. (3) Diverticulitis of intestine with abscess: Admission and Anticipated Discharge Date Admission Date: October 18, 2020 Subjective No further bradycardia. Heart rate 60-70 bpm overnight. No cardiopulmonary symptoms, no chest discomfort, subjective palpitations, presyncope, or syncope. Patient felt much better and said she was "ready to take her stress test now". Physical Exam Physical Exam: No distress. BP normotensive to mildly hypertensive. Pulse 60-70 bpm and regular.Skin: no ecchymoses or generalized lesions. HEENT: unremarkable. Neck: no JVD or carotid bruits. Lungs: clear. Cardiac: regular rhythm with normal S1 and S2, no murmur or gallop. Abdomen: benign. Extremities: no edema, pulses intact. Neurologic: normal affect and conversation, nonfocal. Results & Data ([facility]) Vital Signs (Past 12 Hours) Vital Signs Temp Pulse Resp BP Pulse Ox 10/22/20 07:56 97.5 F L 61 18 159/75 H 97 Laboratory Results WBC normal, hemoglobin, normal platelet count. Normal electrolytes, BUN 4, creatinine 0.61. Diagnostic Findings Abdominal CT, acute diverticulitis with contained perforation. Chest CT showed no pulmonary embolism, small pleural effusions and bibasilar atelectasis.. PG Care Time/CCT Total # of Minutes Spent Total Time Spent with Patient: Total time spent is greater than 50% in coordination of care (as documented) at patient's floor/unit and/or counseling patient: Coding Level of Care Code 81478 Subseq Hosp Care Lvl 2 Diagnoses Sinus bradycardia R00.1 Abnormal ECG R94.31 Diverticulitis of intestine with abscess K57.20 Diverticulitis bleeding: without bleeding Diverticulitis site: large intestine (1) Diverticulitis of intestine with abscess Diverticulitis bleeding: without bleeding Diverticulitis site: large intestine Qualified Code(s): K57.20 - Diverticulitis of large intestine with perforation and abscess without bleeding
[2020-10-22] MEDS: PIPERACILLIN/TAZOBACTAM 3.375 GM in DEXTROSE 5% 100 ML IV SCH ×2 (16:23→23:23)
[2020-10-22] MEDS: ENOXAPARIN INJ 40 MG/0.4 ML SYR SQ SCH (20:28)
[2020-10-22] MEDS: ZOLPIDEM TARTRATE 5 MG TAB PO PRN (23:29)
[2020-10-22 23:54] LABS: Appearance Urine Clear (Clear); Bacteria Urine Automated Negative (Negative); Bilirubin Urine Negative (Negative); Blood Urine Trace (Negative); Cast Urine Automated 0 /lpf (0-5); Color Urine Yellow; Glucose Urine UA Negative (Negative); Ketones Urine 2+ (Negative); Leukocyte Esterase Urine Trace (Negative); Nitrite Urine Negative (Negative); RBC Urine Automated 0-4 /hpf (0-4); Urobilinogen Urine Negative (Negative); pH Urine 8.5 (4.5-7.5)
[2020-10-23 00:03] LABS: Protein Urine Trace (Negative)
[2020-10-23 06:23] LABS: Basophils # (auto) 0.02 K/uL (0-0.2); Basophils % (auto) 0.2 %; Eosinophils # (auto) 0.35 K/uL (0-0.5); Eosinophils % (auto) 4.2 %; Hematocrit (blood only) 36.3 % (37-47); Hemoglobin 12.1 g/dL (12.0-16.0); Immature Granulocytes # (auto) 0.07 K/uL (0.00-0.02); Immature Granulocytes % (auto) 0.8 %; Lymphocytes # (auto) 1.37 K/uL (1.2-3.4); Lymphocytes % (auto) 16.3 %; Mean Corpuscular Hgb Conc 33.3 g/dL (32-36); Mean Corpuscular Volume 90.1 fL (80-100); Mean Platelet Volume 10.3 fL (7.4-10.4); Monocytes # (auto) 0.75 K/uL (0.11-0.59); Monocytes % (auto) 8.9 %; Neutrophils # (auto) 5.82 K/uL (1.4-6.5); Neutrophils % (auto) 69.6 %; Platelet Count 373 K/uL (130-400); RDW Coefficient of Variation 13.3 % (11.5-14.5); RDW Standard Deviation 44.4 fL (36.4-46.3); Red Blood Count 4.03 M/uL (4.2-5.4); White Blood Count 8.38 K/uL (4.8-10.8)
[2020-10-23 07:07] LABS: Albumin Globulin Ratio 0.8 (0.9-2); BUN Creatinine Ratio 5.8 (10-20); Bilirubin,Total 0.5 mg/dl (0.2-1); Calcium 8.8 mg/dl (8.5-10.1); Creatinine Clr Calc Pharmacy 80.5 ml/min; Est GFR (African American) 103.7 ml/min; Est GFR (Non-African American) 89.4 ml/min; Globulin 3.9 gm/dl (2.5-4.0); Total Protein 6.9 gm/dl (6.4-8.2)
[2020-10-23] MEDS: PIPERACILLIN/TAZOBACTAM 3.375 GM in DEXTROSE 5% 100 ML IV SCH (07:59)
[2020-10-23 08:17] LABS: Potassium 3.7 mmol/L (3.5-5.1)
--- NOTE | 2020-10-23 08:18 | Hospitalist Progress Note ---
Date of Service October 23, 2020 Assessment & Plan Admission and Anticipated Discharge Date Admission Date: October 18, 2020 Results & Data Results & Data ([facility]) Vital Signs (Past 12 Hours) Vital Signs Temp Pulse Resp BP Pulse Ox 10/23/20 07:11 37.2 C 55 L 18 156/78 H 93 10/22/20 23:21 37.4 C 70 16 177/84 H 95 Laboratory Results 10/23/20 10/23/20 10/23/20 Range/Units 07:24 05:57 05:57 WBC 8.38 (4.8-10.8) K/uL RBC 4.03 L (4.2-5.4) M/uL Hgb 12.1 (12.0-16.0) g/dL Hct 36.3 L (37-47) % MCV 90.1 (80-100) fL MCH 30.0 (25-34) pg MCHC 33.3 (32-36) g/dL RDW Std Deviation 44.4 (36.4-46.3) fL RDW Coeff of Tito 13.3 (11.5-14.5) % Plt Count 373 (130-400) K/uL MPV 10.3 (7.4-10.4) fL Immature Gran % (Auto) 0.8 % Neut % (Auto) 69.6 % Lymph % (Auto) 16.3 % [place] % (Auto) 8.9 % Eos % (Auto) 4.2 % Baso % (Auto) 0.2 % Neut # (Auto) 5.82 (1.4-6.5) K/uL Lymph # (Auto) 1.37 (1.2-3.4) K/uL [place] # (Auto) 0.75 H (0.11-0.59) K/uL Eos # (Auto) 0.35 (0-0.5) K/uL Baso # (Auto) 0.02 (0-0.2) K/uL Immature Gran # (Auto) 0.07 H (0.00-0.02) K/uL Sodium 140 (136-145) mmol/L Potassium 3.7 (3.5-5.1) mmol/L Chloride 108 H (98-107) mmol/L Carbon Dioxide 28 (21-32) mmol/L Anion Gap 4.0 (3-11) BUN 4 L (7-18) mg/dl Creatinine 0.69 (0.6-1.2) mg/dl Est Cr Clr Drug Dosing 80.5 ml/min Est GFR ( Amer) 103.7 ml/min Est GFR (Non-Af Amer) 89.4 ml/min BUN/Creatinine Ratio 5.8 L (10-20) Glucose 95 (70-99) mg/dl Calcium 8.8 (8.5-10.1) mg/dl Magnesium Pending (1.8-2.4) mg/dl Total Bilirubin 0.5 (0.2-1) mg/dl AST Pending (15-37) U/L ALT 37 (12-78) U/L Alkaline Phosphatase 116 (45-117) U/L Total Protein 6.9 (6.4-8.2) gm/dl Albumin 3.0 L (3.4-5.0) gm/dl Globulin 3.9 (2.5-4.0) gm/dl Albumin/Globulin Ratio 0.8 L (0.9-2) Urine Color Urine Appearance Urine pH Ur Specific [place] Urine Protein Urine Glucose (UA) Urine Ketones Urine Blood Urine Nitrite Urine Bilirubin Urine Urobilinogen Ur Leukocyte Esterase Urine WBC (Auto) Urine RBC (Auto) U Hyaline Cast (Auto) U Epithel Cells (Auto) Urine Bacteria (Auto) Ur Renal Epithelial Cell Urine Crystals Calcium Oxalate Crystal Uric Acid Crystals Triple Phos Crystals Other Crystals Amorphous Sediment Granular Casts Waxy Casts RBC Casts WBC Casts Other Casts Urine Mucus Urine Other Urine Trichomonas Urine Yeast Urine Sperm Ur Oval Fat Bodies Stl C. diff Tox B Gene (Neg) 10/22/20 10/22/20 10/22/20 Range/Units Unknown Unknown 19:13 WBC (4.8-10.8) K/uL RBC (4.2-5.4) M/uL Hgb (12.0-16.0) g/dL Hct (37-47) % MCV (80-100) fL MCH (25-34) pg MCHC (32-36) g/dL RDW Std Deviation (36.4-46.3) fL RDW Coeff of Tito (11.5-14.5) % Plt Count (130-400) K/uL MPV (7.4-10.4) fL Immature Gran % (Auto) % Neut % (Auto) % Lymph % (Auto) % [place] % (Auto) % Eos % (Auto) % Baso % (Auto) % Neut # (Auto) (1.4-6.5) K/uL Lymph # (Auto) (1.2-3.4) K/uL [place] # (Auto) (0.11-0.59) K/uL Eos # (Auto) (0-0.5) K/uL Baso # (Auto) (0-0.2) K/uL Immature Gran # (Auto) (0.00-0.02) K/uL Sodium (136-145) mmol/L Potassium (3.5-5.1) mmol/L Chloride (98-107) mmol/L Carbon Dioxide (21-32) mmol/L Anion Gap (3-11) BUN (7-18) mg/dl Creatinine (0.6-1.2) mg/dl Est Cr Clr Drug Dosing ml/min Est GFR ( Amer) ml/min Est GFR (Non-Af Amer) ml/min BUN/Creatinine Ratio (10-20) Glucose (70-99) mg/dl Calcium (8.5-10.1) mg/dl Magnesium (1.8-2.4) mg/dl Total Bilirubin (0.2-1) mg/dl AST (15-37) U/L ALT (12-78) U/L Alkaline Phosphatase (45-117) U/L Total Protein (6.4-8.2) gm/dl Albumin (3.4-5.0) gm/dl Globulin (2.5-4.0) gm/dl Albumin/Globulin Ratio (0.9-2) Urine Color Yellow Cancelled Urine Appearance Clear Cancelled Urine pH 8.5 H Cancelled Ur Specific [place] 1.010 Cancelled Urine Protein Trace H Cancelled Urine Glucose (UA) Negative Cancelled Urine Ketones 2+ H Cancelled Urine Blood Trace H Cancelled Urine Nitrite Negative Cancelled Urine Bilirubin Negative Cancelled Urine Urobilinogen Negative Cancelled Ur Leukocyte Esterase Trace H Cancelled Urine WBC (Auto) 1-5 Cancelled Urine RBC (Auto) 0-4 Cancelled U Hyaline Cast (Auto) 0 Cancelled U Epithel Cells (Auto) 5-10 H Cancelled Urine Bacteria (Auto) Negative Cancelled Ur Renal Epithelial Cell Cancelled Urine Crystals Cancelled Calcium Oxalate Crystal Cancelled Uric Acid Crystals Cancelled Triple Phos Crystals Cancelled Other Crystals Cancelled Amorphous Sediment Cancelled Granular Casts Cancelled Waxy Casts Cancelled RBC Casts Cancelled WBC Casts Cancelled Other Casts Cancelled Urine Mucus Cancelled Urine Other Cancelled Urine Trichomonas Cancelled Urine Yeast Cancelled Urine Sperm Cancelled Ur Oval Fat Bodies Cancelled Stl C. diff Tox B Gene Negative Cdiff Gene (Neg) 10/22/20 Range/Units 06:47 WBC 10.45 (4.8-10.8) K/uL RBC 3.87 L (4.2-5.4) M/uL Hgb 11.7 L (12.0-16.0) g/dL Hct 35.2 L (37-47) % MCV 91.0 (80-100) fL MCH 30.2 (25-34) pg MCHC 33.2 (32-36) g/dL RDW Std Deviation 45.3 (36.4-46.3) fL RDW Coeff of Tito 13.6 (11.5-14.5) % Plt Count 348 (130-400) K/uL MPV 10.1 (7.4-10.4) fL Immature Gran % (Auto) 0.8 % Neut % (Auto) 73.4 % Lymph % (Auto) 13.8 % [place] % (Auto) 9.0 % Eos % (Auto) 2.7 % Baso % (Auto) 0.3 % Neut # (Auto) 7.58 H (1.4-6.5) K/uL Lymph # (Auto) 1.43 (1.2-3.4) K/uL [place] # (Auto) 0.93 H (0.11-0.59) K/uL Eos # (Auto) 0.28 (0-0.5) K/uL Baso # (Auto) 0.03 (0-0.2) K/uL Immature Gran # (Auto) 0.08 H (0.00-0.02) K/uL Sodium (136-145) mmol/L Potassium (3.5-5.1) mmol/L Chloride (98-107) mmol/L Carbon Dioxide (21-32) mmol/L Anion Gap (3-11) BUN (7-18) mg/dl Creatinine (0.6-1.2) mg/dl Est Cr Clr Drug Dosing ml/min Est GFR ( Amer) ml/min Est GFR (Non-Af Amer) ml/min BUN/Creatinine Ratio (10-20) Glucose (70-99) mg/dl Calcium (8.5-10.1) mg/dl Magnesium (1.8-2.4) mg/dl Total Bilirubin (0.2-1) mg/dl AST (15-37) U/L ALT (12-78) U/L Alkaline Phosphatase (45-117) U/L Total Protein (6.4-8.2) gm/dl Albumin (3.4-5.0) gm/dl Globulin (2.5-4.0) gm/dl Albumin/Globulin Ratio (0.9-2) Urine Color Urine Appearance Urine pH Ur Specific [place] Urine Protein Urine Glucose (UA) Urine Ketones Urine Blood Urine Nitrite Urine Bilirubin Urine Urobilinogen Ur Leukocyte Esterase Urine WBC (Auto) Urine RBC (Auto) U Hyaline Cast (Auto) U Epithel Cells (Auto) Urine Bacteria (Auto) Ur Renal Epithelial Cell Urine Crystals Calcium Oxalate Crystal Uric Acid Crystals Triple Phos Crystals Other Crystals Amorphous Sediment Granular Casts Waxy Casts RBC Casts WBC Casts Other Casts Urine Mucus Urine Other Urine Trichomonas Urine Yeast Urine Sperm Ur Oval Fat Bodies Stl C. diff Tox B Gene (Neg) PG Care Time/CCT Total # of Minutes Spent Total Time Spent with Patient: Total time spent is greater than 50% in coordination of care (as documented) at patient's floor/unit and/or counseling patient: Coding
[2020-10-23 08:22] LABS: Magnesium 1.9 mg/dl (1.8-2.4)
[2020-10-23] MEDS: LIDOCAINE 5% 1 PATCH TD SCH (10:22)
--- NOTE | 2020-10-23 11:45 | Surgery Progress Note ---
Date of Service October 23, 2020 Assessment & Plan (1) Diverticulitis of intestine with abscess: Plan: Patient is not having significant abdominal pain She currently is on IV antibiotics She is breathing very well Her ID consult is pending She is pushing for p.o. antibiotics I do hope depending on how the day goes that she can be discharged because It seems to be causing her a lot of anxiety staying in the hospital longer Admission and Anticipated Discharge Date Admission Date: October 18, 2020 Subjective Clinically patient seems to be doing well today Afebrile breathing very well She is very anxious to go home and it appears to be causing her some mental distress We are awaiting the ID consult Review of Systems Review of Systems: All systems reviewed & are unremarkable except as noted in HPI & below Physical Exam Constitutional: well developed and well nourished; no acute distress Eyes: + anicteric sclerae Respiratory: normal respiratory effort; no respiratory distress Cardiovascular: Rate/Rhythm: regular rate Gastrointestinal (Abdomen): Percussion/Palpation: abdomen soft Musculoskeletal: Gait: normal gait Skin: no rashes, warm and dry Neurologic: awake Psychiatric: Orientation: alert Results & Data ([facility]) Vital Signs (Past 12 Hours) Vital Signs Temp Pulse Resp BP Pulse Ox 10/23/20 07:11 37.2 C 55 L 18 156/78 H 93 PG Care Time/CCT Total # of Minutes Spent Total Time Spent with Patient: Total time spent is greater than 50% in coordina tion of care (as documented) at patient's floor/unit and/or counseling patient: Coding Level of Care Code 10599 Inpt Consult Level 3 Diagnoses Diverticulitis of intestine with abscess K57.20 Diverticulitis bleeding: without bleeding Diverticulitis site: large intestine (1) Diverticulitis of intestine with abscess Diverticulitis bleeding: without bleeding Diverticulitis site: large intestine Qualified Code(s): K57.20 - Diverticulitis of large intestine with perforation and abscess without bleeding
[2020-10-23] MEDS ORDERED: LORazepam 0.5 MG TAB PO STA (12:12)
[2020-10-23] MEDS: PIPERACILLIN/TAZOBACTAM 4.5 GM in DEXTROSE 5% 100 ML IV SCH ×2 (15:32→23:37)
--- NOTE | 2020-10-23 16:10 | Discharge Summary ---
Date of Service October 24, 2020 Admission HPI Per Admitting Provider Sushma Martinez is a 70 year old female who presents to the ER with abdominal pain. Relatively sudden onset left lower quadrant and now central abdominal pain, occurred since last night, aching, no radiation, much improved since bowel rest and pain medications given. Associated fatigue going on for longer which she put down to recent rib fractures. She has never had diverticultitis before had previously normal colonoscopies but unsure when the last one was. She notes she was supposed to have a colonoscopy last summer but this was delayed due to the pandemic. In the ER WBC elevated at 22.74, CT A/P consistent with sigmoid diverticulitis with associated 2.2x1.8x1.1cm abscess. She was started on Zosyn for antibiotic coverage. Admission Exam Per Admitting Provider Constitutional: WD/WN, vitals as above Eyes: + anicteric sclerae; normal pupil size ENMT: external ear and nose normal, oropharynx normal Mouth: oral mucous membranes not dry Neck: trachea midline, no thyromegaly Respiratory: normal respiratory effort, lungs clear to auscultation Cardiovascular: RRR, no murmur, no edema Gastrointestinal (Abdomen): Inspection/Auscultation: normal bowel sounds; abdomen not distended Percussion/Palpation: + abdomen tender (mild central tenderness) and abdomen soft; no guarding, abdomen not rigid and no hepatosplenomegaly Musculoskeletal: no cyanosis or clubbing, extremities motor strength 5/5 Skin: no rashes, warm and dry Neurologic: moves all extremities and awake; not confused Psychiatric: A+Ox3, euthymic affect Principal Diagnosis Diverticulitis with Abscess Discharge Exam Constitutional WD/WN, vitals as above Eyes + anicteric sclerae and PERRL ENMT Mouth: oral mucous membranes not dry Respiratory normal respiratory effort, lungs clear to auscultation Cardiovascular RRR, no murmur, no edema Gastrointestinal (Abdomen) Inspection/Auscultation: normal bowel sounds; abdomen not distended Percussion/Palpation: abdomen soft; abdomen nontender, no guarding, abdomen not rigid and no hepatosplenomegaly Musculoskeletal no cyanosis or clubbing, extremities motor strength 5/5 Skin normal turgor; no rashes Neurologic PERRL, EOMI, accommodation nl, no face palsy, no dysarthria Psychiatric A+Ox3, euthymic affect (anxious about going home) Lymphatic no cervical or axillary lymphadenopathy Discharge Data Allergies Allergy/AdvReac Type Severity Reaction Status Date / Time prednisone AdvReac Intermediate NERVOUS Verified 08/22/20 16:25 AND SHAKEY FEELING-NOT SURE IF GOT HIVES Consultations 10/18/20 06:53 ED Decision to Admit Stat 10/21/20 09:07 Consult Cardiology Routine 10/22/20 10:12 Consult Infectious Diseases Routine Ordered Studies 10/18/20 05:01 CT abd pelvis IV con only Urgent 10/22/20 07:35 CT abd pelvis IV con only Urgent CT angio chest PE protocol Urgent Hospital Course (1) Diverticulitis of intestine with abscess: First episode CTAP with diverticulitis with peridiverticular 3.2 x 1.9 cm abscess General Surgery on consult WBC wnl Switched to Augmentin on 10/21 (currently day 5 of treatment) -->switched back to Zosyn while inpatient needs to complete 2 week course at least per Dr. Ramsey whether with PO or IV Consulted ID for recs at discharge. If IV needed, will need US Guided IV and set up home abx. CM aware and following to see if needed Will need f/u CT in 1-2 months Did have temp 38.2C last evening and hypoxia with O2 sat 85% on RA. Was placed on 2L NC and already on room air after administration Interval development of interstitial pulmonary edema and small bilateral pleural effusions. CT Chest NEGATIVE for PE, but did show b/l effusions and compressive atelectasis --> Lasix 20mg IV x 1, PO potassium supplementation to prevent worsening hypokalemia Repeat CTAP initially looked like more ovarian involvement -> reviewed by Dr. Ramsey and felt looked improved (now 2.8cm from 3.1cm) and could consider PO but will keep on IV for now as above No further temps General surgery rec f/u [facility] [place] -- appt made with Dr. Moeller from [facility] [place] No further IVF Full liquids --> low fiber and tolerating BMs slowing, still liquid but some forming Cdiff ordered -- negative ID consultation today Recs Zosyn 4.5gm Q8H IV x 4 weeks -- placed US guided IV. Arranged abx with CM. Discharged after midnight dose of Zosyn and infusion company to be at home for next dose at 8AM (2) Abnormal ECG: on current EKG with minor T wave abn, maximiliano on admission had anterolateral ST depression and increased T wave inversions Has not had exertional symptoms but felt beating slowly Cardiology consulted -- appreciate assistance Charlotte given lack of symtpoms, not urgent (unless of course became symptomatic), and would recommend having patient get in for an outpatient stress test once recovered from current illness so that we have a better idea of baseline and to make sure "not a problem" However, if patient would undergo elective surgical correction of diverticular disease, would obtain stress echo prior to that to better risk stratify Lipid panel wnl (3) Sinus bradycardia: Minimal vs asymptomatic. She felt beating slowly. Active lifestyle. Cardiology consulted as above. Likely high vagal tone. She is not on any chronotropic agents Could be from some of the pain medications No heart block noted Rec heart rate apple and to monitor periodically -- has good chronotropic response As above DVT Proph Lovenox 40mg SQ daily for VTE prophylaxis (had been refusing) -- CT negative for PE as above. No calf edema/erythema/evidence for DVT. Has been ambulating frequently and requested to go to [place] as well throughout admission Discharged on IV abx x 4 weeks. PCP following labs for weekly CBC, CMP To have f/u CT in 1-2 months Rec outpatient stress echo to obtain baseline as outlined above Follow up with [facility] [place] colorectal, Dr Moeller, as already arranged prior to discharge Total Time Total Time Spent Total Time Spent (In Minutes): 60 Discharge Plan Discharge Items Patient Disposition: Home - Home Health Services Reason For Visit: ACUTE DIVERTICULITIS Discharge Diagnosis: Acute Diverticulitis with Abscess Goals: You have been hospitalized for an acute medical problem. During your stay at [facility], we have made an effort to correct the problem that brought you to the hospital while keeping you as comfortable as possible. Medications were used to bring your condition under control and your discharge instructions will include directions for any medications you should take after leaving the hospital. Please make sure you see your Primary Care Provider as part of your follow up plan. Activity: As commented below Activity Comment: light activity for 4 weeks Lifting: No more than 10 pounds Non-emergency contact: Primary Care Provider, Surgeon and Vending Machine Repairer Call non-emergency contact if: you have any medication questions Follow-up/Referrals: Evan Ramsey MD, FACS [Physician] - 11/26/20 9:15 am (1 month.) Ashli Cedeño CRNP [Primary Care Provider] - 10/28/20 2:50 pm Outside,Provider [Outside Practitioners] - 11/04/20 10:15 am (DR MOELLER, [facility]. LOCATED AT [address] [place] [address]. PHONE NUMBER [phone]; [employer]. FAX NUMBER IS [phone].) Diet: Low Fiber Addtl Attending Provider Instructions: You have been hospitalized for acute diverticulitis with abscess. General surgery was consulted and you treated conservatively with IV antibiotics. Based on location and size, it was not felt these needed surgery or transfer for drainage and could be treated with antibiotics. Repeat imaging showed decrease in size of areas of concern as reviewed by surgeon. The hope was to be able to transition to oral antibiotics but we underwent consultation with infectious disease and they recommended IV Zosyn for antibiotics for 4 weeks. Case management was consulted and arranged for IV antibiotics through your ultrasound guided IV and they will be arranged to be at your residence tomorrow morning to continue the course of treatment. You have been set up a follow up appointment with Dr. Moeller from [facility]- rectal as discussed by Dr. Ramsey and will need to have a repeat CT of your abdomen and pelvis in one month as can be scheduled by your primary care provider or GI to ensure resolution of the abscess. You will need to continue a low fiber diet for 2 weeks and advance as tolerated. As discussed by infectious disease, you should abstain from exercise with exception of light activity until you have completed your treatment. You can consider over the counter probiotic to help with diarrhea, but you should contact your PCP if you notice increased diarrhea >10x/day, increase in foul smell/etc as antibiotics can kill the good bacteria in our gut and lead to overgrowth of something called cdiff. This is treatable as well, but you should monitor for this while on antibiotics. Your EKG on admission did show some non-specific changes. Cardiology was consulted during admission and repeat EKG looked normal. He felt this is related to a high vagal tone but is recommending you follow up w ith your PCP about scheduling an outpatient stress echo when you are recovered from current illness. You have been sent in prescription for Zofran to dissolve under the tongue for nausea to use as needed but please note if persistent or if unable to keep up with oral intake you should contact your provider sooner. Hopes are for antibiotics to resolve infection and avoid surgery, and findings on repeat imaging are hopeful based on review. Please follow up with your PCP next week to monitor your progress after hospitalization. You will have weekly labs drawn while on antibiotics to ensure blood counts and electrolytes/kidney function remains stable on these antibiotics and your PCP has agreed to monitor these levels. However, if you develop fever, chills, increased abdominal pain, nausea, vomiting, chest pain, shortness of breath, syncope or other symptoms that are concerning for you please return to the emergency department. It has been a pleasure being a part of the medical team providing for you while you have been in the hospital. Take care! -Delphine Sargent PA-C Pending Studies at Discharge: Yes Studies:: Blood cultures -- remain negative to date Stand-Alone Forms: My [facility] Medications and DC Order Prescriptions: New ondansetron 4 mg tablet,disintegrating 4 mg PO Q8H PRN (Reason: nausea and vomiting) Qty: 10 RF: 0 Zosyn in dextrose (iso-osm) 4.5 gram/100 mL piggyback 4.5 g IV Q8H 28 Days Qty: 9450 RF: 0 Continued valacyclovir 500 mg tablet 500 mg PO BID Qty: 6 RF: 2 clobetasol 0.05 % ointment 1 applic topical QID Qty: 1 RF: 0 multivitamin Tablet 1 tab PO DAILY RF: 0 calcium carbonate-vitamin D3 [Calcium 600 + D(3)] 600 mg(1,500mg) -200 unit Tablet 1 tab PO DAILY RF: 0 ascorbic acid (vitamin C) [Vitamin C] 250 mg Tablet 250 mg PO DAILY RF: 0 [place]-3 350 mg-235 mg- 90 mg-597 mg Capsule,Delayed Release(Dr/Ec) 1 cap PO DAILY RF: 0 lidocaine 4 % adhesive patch,medicated 1 patch topical DAILY Qty: 15 RF: 0 sennosides [Senokot] 8.6 mg tablet 8.6 mg PO HS Qty: 30 RF: 0 docusate sodium [Colace] 100 mg capsule 100 mg PO BID Qty: 60 RF: 0 Discharge Orders: Discharge Order (Routine); Ordered 10/23/20 Ordered By: Delphine Gómez/Other Patient Handouts: Low-Fiber Diet, Diverticulosis Diverticulitis Admission Data Admit Date/Time: 10/18/20 07:59 Attending Provider: Desmond Del Rio Admit Provider: Flakito Ch Primary Care Provider: Ashli Cedeño Other Providers: Flakito Ch ; Reed High ; Rajat Zapata ; Mat Doan ; Óscar Mi I. ; Ashwin Bourgeois II ; Marcy Esparza ; Dami Byers ; [facility] Other Interventions: Discharge Summary Assessment (RN) Last Done: 10/23/20 18:12 Coding Level of Care Code D/C DAY MANAGEMENT >30 MINS Diagnoses Diverticulitis of intestine with abscess K57.20 Diverticulitis bleeding: without bleeding Diverticulitis site: large intestine Abnormal ECG R94.31 Sinus bradycardia R00.1
--- NOTE | 2020-10-23 18:17 | Hospitalist Progress Note ---
Date of Service October 23, 2020 Assessment & Plan (1) Diverticulitis of intestine with abscess: Plan: First episode CTAP with diverticulitis with peridiverticular 3.2 x 1.9 cm abscess General Surgery on consult WBC wnl Switched to Augmentin on 10/21 (currently day 5 of treatment) -->switched back to Zosyn while inpatient needs to complete 2 week course at least per Dr. Ramsey whether with PO or IV Consulted ID for recs at discharge. If IV needed, will need US Guided IV and set up home abx. CM aware and following to see if needed Will need f/u CT in 1-2 months Did have temp 38.2C last evening and hypoxia with O2 sat 85% on RA. Was placed on 2L NC and already on room air after administration Interval development of interstitial pulmonary edema and small bilateral pleural effusions. CT Chest NEGATIVE for PE, but did show b/l effusions and compressive atelectasis --> Lasix 20mg IV x 1, PO potassium supplementation to prevent worsening hypokalemia Repeat CTAP initially looked like more ovarian involvement -> reviewed by Dr. Ramsey and felt looked improved (now 2.8cm from 3.1cm) and could consider PO but will keep on IV for now as above No further temps General surgery rec f/u [facility] -- appt made with Dr. June from [facility] No further IVF Full liquids --> low fiber and tolerating BMs slowing, still liquid but some forming Cdiff ordered -- negative ID consultation today Recs Zosyn 4.5gm Q8H IV x 4 weeks -- placed US guided IV. Arranged abx with CM. Plans for d/c after midnight dose tonight (2) Abnormal ECG: Plan: on current EKG with minor T wave abn, howevr on admission had anterolateral ST depression and increased T wave inversions Has not had exertional symptoms but felt beating slowly Cardiology consulted -- appreciate assistance [place] given lack of symtpoms, not urgent (unless of course became symptomatic), and would recommend having patient get in for an outpatient stress test once recovered from current illness so that we have a better idea of baseline and to make sure "not a problem" However, if patient would undergo elective surgical correction of diverticular disease, would obtain stress echo prior to that to better risk stratify Lipid panel wnl (3) Sinus bradycardia: Plan: Minimal vs asymptomatic. She felt beating slowly. Active lifestyle. Cardiology consulted as above. Likely high vagal tone. She is not on any chronotropic agents Could be from some of the pain medications No heart block noted Rec heart rate apple and to monitor periodically -- has good chronotropic response Plan: As above DVT Proph Lovenox 40mg SQ daily for VTE prophylaxis (had been refusing) -- CT negative for PE as above. No calf edema/erythema/evidence for DVT. Has been ambulating frequently and requested to go to [facility] [facility] as well Dispo: continued inpatient stay for IV abx today with plans for d/c overnight to resume ZOsyn dosing tomorrow Admission and Anticipated Discharge Date Admission Date: October 18, 2020 Subjective Patient evaluated this morning. Lengthy time spent discussing ID consultation and arranging IV abx for d/c. She contemplated continuous vs Q8H scheduling. CM following and arranged IV abx to be delivered tomorrow [facility] at 8am. Patient planning on d/c after midnight dose of abx and resume at 8am. Discussed with pharmacy and will plan for 30min transfusion. Tolerating diet. No fever. No pain. No nausea or vomiting. Anxious to go home. No cp/sob/n/v or dysuria at this time. Continues with loose stools, but improved. Review of Systems Review of Systems: All systems reviewed & are unremarkable except as noted in HPI & below Physical Exam Constitutional: WD/WN, vitals as above Eyes: + anicteric sclerae and PERRL ENMT: Mouth: oral mucous membranes not dry Respiratory: normal respiratory effort, lungs clear to auscultation Cardiovascular: RRR, no murmur, no edema Gastrointestinal (Abdomen): Inspection/Auscultation: normal bowel sounds; abdomen not distended Percussion/Palpation: abdomen soft; abdomen nontender, no guarding, abdomen not rigid and no hepatosplenomegaly Skin: normal turgor; no rashes Psychiatric: A+Ox3, euthymic affect (anxious about going home) Results & Data Results & Data ([facility]) Vital Signs (Past 12 Hours) Vital Signs Temp Pulse Resp BP Pulse Ox 10/23/20 17:48 36.8 C 77 18 144/87 H 98 10/23/20 07:11 37.2 C 55 L 18 156/78 H 93 Laboratory Results 10/23/20 10/23/20 10/23/20 Range/Units 07:24 05:57 05:57 WBC 8.38 (4.8-10.8) K/uL RBC 4.03 L (4.2-5.4) M/uL Hgb 12.1 (12.0-16.0) g/dL Hct 36.3 L (37-47) % MCV 90.1 (80-100) fL MCH 30.0 (25-34) pg MCHC 33.3 (32-36) g/dL RDW Std Deviation 44.4 (36.4-46.3) fL RDW Coeff of Tito 13.3 (11.5-14.5) % Plt Count 373 (130-400) K/uL MPV 10.3 (7.4-10.4) fL Immature Gran % (Auto) 0.8 % Neut % (Auto) 69.6 % Lymph % (Auto) 16.3 % [place] % (Auto) 8.9 % Eos % (Auto) 4.2 % Baso % (Auto) 0.2 % Neut # (Auto) 5.82 (1.4-6.5) K/uL Lymph # (Auto) 1.37 (1.2-3.4) K/uL [place] # (Auto) 0.75 H (0.11-0.59) K/uL Eos # (Auto) 0.35 (0-0.5) K/uL Baso # (Auto) 0.02 (0-0.2) K/uL Immature Gran # (Auto) 0.07 H (0.00-0.02) K/uL Sodium 140 (136-145) mmol/L Potassium 3.7 (3.5-5.1) mmol/L Chloride 108 H (98-107) mmol/L Carbon Dioxide 28 (21-32) mmol/L Anion Gap 4.0 (3-11) BUN 4 L (7-18) mg/dl Creatinine 0.69 (0.6-1.2) mg/dl Est Cr Clr Drug Dosing 80.5 ml/min Est GFR ( Amer) 103.7 ml/min Est GFR (Non-Af Amer) 89.4 ml/min BUN/Creatinine Ratio 5.8 L (10-20) Glucose 95 (70-99) mg/dl Calcium 8.8 (8.5-10.1) mg/dl Magnesium 1.9 (1.8-2.4) mg/dl Total Bilirubin 0.5 (0.2-1) mg/dl AST 27 (15-37) U/L ALT 37 (12-78) U/L Alkaline Phosphatase 116 (45-117) U/L Total Protein 6.9 (6.4-8.2) gm/dl Albumin 3.0 L (3.4-5.0) gm/dl Globulin 3.9 (2.5-4.0) gm/dl Albumin/Globulin Ratio 0.8 L (0.9-2) Urine Color Urine Appearance Urine pH Ur Specific [place] Urine Protein Urine Glucose (UA) Urine Ketones Urine Blood Urine Nitrite Urine Bilirubin Urine Urobilinogen Ur Leukocyte Esterase Urine WBC (Auto) Urine RBC (Auto) U Hyaline Cast (Auto) U Epithel Cells (Auto) Urine Bacteria (Auto) Ur Renal Epithelial Cell Urine Crystals Calcium Oxalate Crystal Uric Acid Crystals Triple Phos Crystals Other Crystals Amorphous Sediment Granular Casts Waxy Casts RBC Casts WBC Casts Other Casts Urine Mucus Urine Other Urine Trichomonas Urine Yeast Urine Sperm Ur Oval Fat Bodies Stl C. diff Tox B Gene (Neg) 10/22/20 10/22/20 10/22/20 Range/Units Unknown Unknown 19:13 WBC (4.8-10.8) K/uL RBC (4.2-5.4) M/uL Hgb (12.0-16.0) g/dL Hct (37-47) % MCV (80-100) fL MCH (25-34) pg MCHC (32-36) g/dL RDW Std Deviation (36.4-46.3) fL RDW Coeff of [place]ito (11.5-14.5) % Plt Count (130-400) K/uL MPV (7.4-10.4) fL Immature Gran % (Auto) % Neut % (Auto) % Lymph % (Auto) % [place] % (Auto) % Eos % (Auto) % Baso % (Auto) % Neut # (Auto) (1.4-6.5) K/uL Lymph # (Auto) (1.2-3.4) K/uL [place] # (Auto) (0.11-0.59) K/uL Eos # (Auto) (0-0.5) K/uL Baso # (Auto) (0-0.2) K/uL Immature Gran # (Auto) (0.00-0.02) K/uL Sodium (136-145) mmol/L Potassium (3.5-5.1) mmol/L Chloride (98-107) mmol/L Carbon Dioxide (21-32) mmol/L Anion Gap (3-11) BUN (7-18) mg/dl Creatinine (0.6-1.2) mg/dl Est Cr Clr Drug Dosing ml/min Est GFR ( Amer) ml/min Est GFR (Non-Af Amer) ml/min BUN/Creatinine Ratio (10-20) Glucose (70-99) mg/dl Calcium (8.5-10.1) mg/dl Magnesium (1.8-2.4) mg/dl Total Bilirubin (0.2-1) mg/dl AST (15-37) U/L ALT (12-78) U/L Alkaline Phosphatase (45-117) U/L Total Protein (6.4-8.2) gm/dl Albumin (3.4-5.0) gm/dl Globulin (2.5-4.0) gm/dl Albumin/Globulin Ratio (0.9-2) Urine Color Yellow Cancelled Urine Appearance Clear Cancelled Urine pH 8.5 H Cancelled Ur Specific [place] 1.010 Cancelled Urine Protein Trace H Cancelled Urine Glucose (UA) Negative Cancelled Urine Ketones 2+ H Cancelled Urine Blood Trace H Cancelled Urine Nitrite Negative Cancelled Urine Bilirubin Negative Cancelled Urine Urobilinogen Negative Cancelled Ur Leukocyte Esterase Trace H Cancelled Urine WBC (Auto) 1-5 Cancelled Urine RBC (Auto) 0-4 Cancelled U Hyaline Cast (Auto) 0 Cancelled U Epithel Cells (Auto) 5-10 H Cancelled Urine Bacteria (Auto) Negative Cancelled Ur Renal Epithelial Cell Cancelled Urine Crystals Cancelled Calcium Oxalate Crystal Cancelled Uric Acid Crystals Cancelled Triple Phos Crystals Cancelled Other Crystals Cancelled Amorphous Sediment Cancelled Granular Casts Cancelled Waxy Casts Cancelled RBC Casts Cancelled WBC Casts Cancelled Other Casts Cancelled Urine Mucus Cancelled Urine Other Cancelled Urine Trichomonas Cancelled Urine Yeast Cancelled Urine Sperm Cancelled Ur Oval Fat Bodies Cancelled Stl C. diff Tox B Gene Negative Cdiff Gene (Neg) PG Care Time/CCT Total # of Minutes Spent Total Time Spent with Patient: Total time spent is greater than 50% in coordination of care (as documented) at patient's floor/unit and/or counseling patient: Coding Level of Care Code 15340 Subseq Hosp Care Lvl 1 Diagnoses Diverticulitis of intestine with abscess K57.20 Diverticulitis bleeding: without bleeding Diverticulitis site: large intestine Abnormal ECG R94.31 Sinus bradycardia R00.1 (1) Diverticulitis of intestine with abscess Diverticulitis bleeding: without bleeding Diverticulitis site: large intestine Qualified Code(s): K57.20 - Diverticulitis of large intestine with perforation and abscess without bleeding
[2020-10-23] MEDS: ENOXAPARIN INJ 40 MG/0.4 ML SYR SQ SCH (20:02)
== END 2020-10-24 00:15 | disposition home health service (06) | DRG 392 ==
LOC: ED 04:38 → 3E 07:59 → SUATTDRO 07:59 → 3E 09:20